=== PATIENT | male | born 1955 | race Caucasian/White ===

== ENCOUNTER 2017-02-10 16:50 | Emergency (ER) | payer MEDICAID ==
[~2017-02-10] VITALS: Ht 175.3 cm; Wt 61.0 kg
[~2017-02-10 16:50] MED LIST: ASPI81TA50 PO; LOSA50TA6 PO; METF500T27 PO
[2017-02-10] MEDS ORDERED: KETOROLAC 30 MG/1 ML IM ONE (17:00)
[2017-02-10 17:02] VITALS: BP 188/100
[2017-02-10] MEDS ORDERED: KETOROLAC 30 MG/1 ML ONE (17:17)
== END 2017-02-10 18:27 | disposition home or self-care (01) ==
LOC: ED 18:15
DX: M25.552 Pain in left hip (principal); I10 Essential (primary) hypertension; E11.9 Type 2 diabetes mellitus without complications; Z59.0 Homelessness
CPT/HCPCS: 73502; 96372; 99284; J1885

== ENCOUNTER 2017-02-24 15:22 | Emergency (ER) | payer MEDICAID ==
[~2017-02-24] VITALS: Ht 175.3 cm; Wt 59.0 kg
[2017-02-24 16:12] LABS: ASPARTATE AMINO TRANSFERASE 23 U/L (15-37); BLOOD UREA NITROGEN 21 mg/dL (7-18)
[2017-02-24 16:13] LABS: HEMATOCRIT 42.1 % (39.2-51.8); HEMOGLOBIN 14.1 g/dL (13.7-18.0); WHITE BLOOD COUNT 4.4 x10^3/uL (3.4-10)
[2017-02-24] MEDS ORDERED: ASPI-496 PO (16:39)
[2017-02-24 16:45] VITALS: BP 141/96
== END 2017-02-24 17:04 | disposition home or self-care (01) ==
LOC: ED 15:54
DX: S32.9XXA Fracture of unspecified parts of lumbosacral spine and pelvis, initial encounter for closed fracture (principal); I10 Essential (primary) hypertension; K59.00 Constipation, unspecified; J44.9 Chronic obstructive pulmonary disease, unspecified; M16.11 Unilateral primary osteoarthritis, right hip; E11.9 Type 2 diabetes mellitus without complications; X58.XXXA Exposure to other specified factors, initial encounter; Y93.89 Activity, other specified; Y92.89 Other specified places as the place of occurrence of the external cause; Y99.8 Other external cause status
CPT/HCPCS: 36415; 74176; 80053; 85025; 85610; 85730; 99285

== ENCOUNTER 2017-04-06 05:16 | Emergency (ER) | payer MEDICAID ==
[~2017-04-06] VITALS: Ht 175.3 cm; Wt 64.0 kg
[~2017-04-06 05:16] MED LIST changes: +ASPI-496 PO
[2017-04-06 05:19] VITALS: BP 171/108
[2017-04-06] MEDS ORDERED: ASPI-621 PO (05:46)
== END 2017-04-06 05:54 | disposition home or self-care (01) ==
LOC: ED 05:40
DX: K02.9 Dental caries, unspecified (principal); E11.9 Type 2 diabetes mellitus without complications; I10 Essential (primary) hypertension
CPT/HCPCS: 99283

== ENCOUNTER 2017-04-06 21:10 | Emergency (ER) | payer MEDICAID ==
[~2017-04-06] VITALS: Ht 175.3 cm; Wt 64.7 kg
[~2017-04-06 21:10] MED LIST changes: +ASPI-621 PO
[2017-04-06 21:12] VITALS: BP 142/88
[2017-04-06] MEDS ORDERED: IBUPROFEN 200 MG TABLET ONE (21:55)
[2017-04-06] MEDS ORDERED: IBUPROFEN 200 MG TABLET PO ONE (22:00)
== END 2017-04-06 23:03 | disposition home or self-care (01) ==
LOC: ED 21:49
DX: M16.11 Unilateral primary osteoarthritis, right hip (principal); M13.151 Monoarthritis, not elsewhere classified, right hip; I10 Essential (primary) hypertension; E11.9 Type 2 diabetes mellitus without complications; G89.29 Other chronic pain; M25.551 Pain in right hip; Z59.0 Homelessness
CPT/HCPCS: 99283

== ENCOUNTER 2017-04-19 14:11 | Emergency (ER) | payer MEDICAID ==
[~2017-04-19] VITALS: Ht 175.3 cm; Wt 64.0 kg
[2017-04-19 14:25] VITALS: BP 153/90
== END 2017-04-19 15:46 | disposition home or self-care (01) ==
LOC: ED 14:39
DX: M16.11 Unilateral primary osteoarthritis, right hip (principal); G89.29 Other chronic pain; E11.9 Type 2 diabetes mellitus without complications; I10 Essential (primary) hypertension
CPT/HCPCS: 99284

== ENCOUNTER 2017-05-09 19:58 | Emergency (ER) | payer MEDICAID | END 2017-05-09 20:44 | disposition left against medical advice (07) | LOC: ED 20:38 | DX: M25.551 Pain in right hip (principal); Z53.21 Procedure and treatment not carried out due to patient leaving prior to being seen by health care provider ==

== ENCOUNTER 2017-05-10 18:33 | Emergency (ER) | payer MEDICAID ==
[~2017-05-10] VITALS: Ht 175.3 cm; Wt 64.5 kg
[2017-05-10 18:41] VITALS: BP 132/80
[2017-05-10] MEDS ORDERED: ONDANSETRON ODT 4 MG ONE (19:02)
== END 2017-05-10 19:06 | disposition home or self-care (01) ==
LOC: ED 18:55
DX: G89.29 Other chronic pain (principal); M25.552 Pain in left hip; M25.551 Pain in right hip; M13.851 Other specified arthritis, right hip; I10 Essential (primary) hypertension; E11.9 Type 2 diabetes mellitus without complications; Z79.82 Long term (current) use of aspirin
CPT/HCPCS: 99283

== ENCOUNTER 2017-05-23 17:57 | Emergency (ER) | payer MEDICAID ==
[~2017-05-23] VITALS: Ht 175.3 cm; Wt 64.0 kg
[2017-05-23 17:59] VITALS: BP 157/82
[2017-05-23] MEDS ORDERED: MAALOX/HYOSCYAMINE/LIDOCAINE 45 ML BTL PO ONE (18:30)
[2017-05-23] MEDS ORDERED: PANTOPRAZOLE 20MG TABLET PO ONE (18:30)
[2017-05-23] MEDS ORDERED: MAALOX/HYOSCYAMINE/LIDOCAINE 45 ML BTL ONE (18:37)
[2017-05-23] MEDS ORDERED: PANTOPRAZOLE 20MG TABLET ONE (18:37)
[2017-05-23 18:57] LABS: BASOPHILS # (AUTO) 0.08 x10^3/uL (0-0.1); BASOPHILS % (AUTO) 2 % (0-1); EOSINOPHILS # (AUTO) 0.28 x10^3/uL (0-0.4); EOSINOPHILS % (AUTO) 5 % (1-7); LYMPHOCYTES # (AUTO) 1.17 x10^3/uL (1-3.4); LYMPHOCYTES % (AUTO) 20 % (22-44); MD NO; MEAN CORPUSCULAR HEMOGLOBIN 31.7 pg (27.5-34.5); MEAN CORPUSCULAR HGB CONC 32.8 g/dL (33.2-36.2); MEAN CORPUSCULAR VOLUME 96.9 fL (81-97); MEAN PLATELET VOLUME 7.6 fL (7.4-10.4); MONOCYTES # (AUTO) 0.43 x10^3/uL (0.2-0.8); MONOCYTES % (AUTO) 7 % (2-9); NEUTROPHILS # (AUTO) 3.79 x10^3/uL (1.8-6.8); NEUTROPHILS % (AUTO) 66 % (42-75); PLATELET COUNT 294 x10^3/uL (130-400); RED BLOOD COUNT 4.45 x10^6/uL (4.38-5.82); RED CELL DISTRIBUTION WIDTH 15.1 % (9.4-14.8)
[2017-05-23 19:01] LABS: CULTURE INDICATED? YES; MICROSCOPIC INDICATED
[2017-05-23 19:10] LABS: ALANINE AMINOTRANSFERASE 21 U/L (12-78); ANION GAP 9 mmol/L (5-15); CALCIUM 8.5 mg/dL (8.5-10.1); CHLORIDE 108 mmol/L (98-107); CREATININE 0.98 mg/dL (0.7-1.3)
[2017-05-23 19:15] LABS: ALKALINE PHOSPHATASE 63 U/L (45-117); BILIRUBIN,TOTAL 0.4 mg/dL (0.2-1.0); TOTAL PROTEIN 7.3 g/dL (6.4-8.2); TROPONIN I < 0.015 ng/mL (0.000-0.045)
== END 2017-05-23 19:55 | disposition home or self-care (01) ==
LOC: ED 18:48
DX: K25.3 Acute gastric ulcer without hemorrhage or perforation (principal); J45.909 Unspecified asthma, uncomplicated; I10 Essential (primary) hypertension; E11.9 Type 2 diabetes mellitus without complications; Z79.82 Long term (current) use of aspirin
CPT/HCPCS: 36415; 71045; 80053; 81001; 83690; 84484; 85025; 86677; 87086; 93005; 99285

== ENCOUNTER 2017-06-15 04:53 | Emergency (ER) | payer MEDICAID ==
[~2017-06-15] VITALS: Ht 175.3 cm; Wt 62.4 kg
[2017-06-15 04:54] VITALS: BP 170/85
== END 2017-06-15 05:38 | disposition home or self-care (01) ==
LOC: ED 05:20
DX: Z76.0 Encounter for issue of repeat prescription (principal); M16.11 Unilateral primary osteoarthritis, right hip; E11.9 Type 2 diabetes mellitus without complications; I10 Essential (primary) hypertension
CPT/HCPCS: 99283

== ENCOUNTER 2017-06-20 12:24 | Observation (INO) | payer MEDICAID ==
[~2017-06-20] VITALS: Ht 175.3 cm; Wt 61.0 kg
[2017-06-20 11:37] LABS: BASOPHILS # (AUTO) 0.03 x10^3/uL (0-0.1); BASOPHILS % (AUTO) 0 % (0-1); EOSINOPHILS # (AUTO) 0.08 x10^3/uL (0-0.4); EOSINOPHILS % (AUTO) 1 % (1-7); LYMPHOCYTES # (AUTO) 0.89 x10^3/uL (1-3.4); LYMPHOCYTES % (AUTO) 13 % (22-44); MD NO; MEAN CORPUSCULAR HEMOGLOBIN 31.6 pg (27.5-34.5); MEAN CORPUSCULAR HGB CONC 32.7 g/dL (33.2-36.2); MEAN CORPUSCULAR VOLUME 96.6 fL (81-97); MEAN PLATELET VOLUME 7.5 fL (7.4-10.4); MONOCYTES # (AUTO) 0.49 x10^3/uL (0.2-0.8); MONOCYTES % (AUTO) 7 % (2-9); NEUTROPHILS # (AUTO) 5.58 x10^3/uL (1.8-6.8); NEUTROPHILS % (AUTO) 79 % (42-75); PLATELET COUNT 286 x10^3/uL (130-400); RED BLOOD COUNT 4.54 x10^6/uL (4.38-5.82); RED CELL DISTRIBUTION WIDTH 15.1 % (9.4-14.8)
[2017-06-20 11:48] LABS: TROPONIN I < 0.015 ng/mL (0.000-0.045)
[2017-06-20 12:20] LABS: ALANINE AMINOTRANSFERASE 17 U/L (12-78); ALBUMIN 3.6 g/dL (3.4-5.0); ANION GAP 10 mmol/L (5-15); CHLORIDE 108 mmol/L (98-107); CREATININE 0.94 mg/dL (0.7-1.3)
[2017-06-20 12:23] LABS: ALKALINE PHOSPHATASE 59 U/L (45-117); BILIRUBIN,TOTAL 0.3 mg/dL (0.2-1.0); TOTAL PROTEIN 7.1 g/dL (6.4-8.2)
[~2017-06-20 12:24] MED LIST changes: +FAMOTIDINE 20 MG/2 ML IVP ONE; +FAMOTIDINE 20 MG/2 ML ONE; +MAALOX/HYOSCYAMINE/LIDOCAINE 45 ML BTL ONE; +MAALOX/HYOSCYAMINE/LIDOCAINE 45 ML BTL PO ONE; +ONDANSETRON 2MG/ML, 2ML IVPush ONE; +ONDANSETRON 2MG/ML, 2ML ONE; +SODIUM CHLORIDE 0.9% 1,000ML IVBOLUS ONE; +SODIUM CHLORIDE FLUSH 10ML SYR IVF ONE
[2017-06-20] MEDS ORDERED: OMNIPAQUE 350 MG/ML, 100ML BOTTLE ONE (12:47)
[2017-06-20 15:30] VITALS: BP 167/85
[2017-06-20] MEDS ORDERED: ENALAPRILAT 1.25 MG/ML, 2ML IVPush PRN (15:30)
[2017-06-20] MEDS ORDERED: ONDANSETRON ODT 4 MG PO PRN (15:30)
[2017-06-20] MEDS ORDERED: DOCUSATE 100 MG CAPSULE PO PRN (15:30)
[2017-06-20] MEDS ORDERED: LABETALOL 5MG/ML, 20ML IVPush PRN (15:30)
[2017-06-20] MEDS ORDERED: ONDANSETRON 2MG/ML, 2ML IVPush PRN (15:30)
[2017-06-20] MEDS ORDERED: ACETAMINOPHEN 325 MG TABLET PO PRN (15:30)
[2017-06-20 16:21] VITALS: BP 149/87
[2017-06-20 17:33] LABS: TROPONIN I < 0.015 ng/mL (0.000-0.045)
[2017-06-20 20:31] VITALS: BP 134/84
[2017-06-20] MEDS: FAMOTIDINE 20 MG/2 ML IVPush SCH (20:41)
[2017-06-20 23:16] LABS: TROPONIN I < 0.015 ng/mL (0.000-0.045)
[2017-06-21 02:00] VITALS: BP 157/80
[2017-06-21 05:13] LABS: BASOPHILS # (AUTO) 0.03 x10^3/uL (0-0.1); BASOPHILS % (AUTO) 1 % (0-1); EOSINOPHILS # (AUTO) 0.16 x10^3/uL (0-0.4); EOSINOPHILS % (AUTO) 3 % (1-7); LYMPHOCYTES # (AUTO) 1.06 x10^3/uL (1-3.4); LYMPHOCYTES % (AUTO) 19 % (22-44); MD NO; MEAN CORPUSCULAR HEMOGLOBIN 31.6 pg (27.5-34.5); MEAN CORPUSCULAR HGB CONC 32.9 g/dL (33.2-36.2); MEAN CORPUSCULAR VOLUME 95.9 fL (81-97); MEAN PLATELET VOLUME 7.4 fL (7.4-10.4); MONOCYTES # (AUTO) 0.55 x10^3/uL (0.2-0.8); MONOCYTES % (AUTO) 10 % (2-9); NEUTROPHILS # (AUTO) 3.83 x10^3/uL (1.8-6.8); NEUTROPHILS % (AUTO) 68 % (42-75); PLATELET COUNT 275 x10^3/uL (130-400); RED BLOOD COUNT 4.18 x10^6/uL (4.38-5.82); RED CELL DISTRIBUTION WIDTH 14.9 % (9.4-14.8)
[2017-06-21 05:19] LABS: ANION GAP 7 mmol/L (5-15); CALCIUM 8.4 mg/dL (8.5-10.1); CHLORIDE 111 mmol/L (98-107)
[2017-06-21 05:23] LABS: ALANINE AMINOTRANSFERASE 14 U/L (12-78); ALKALINE PHOSPHATASE 52 U/L (45-117); BILIRUBIN,TOTAL 0.5 mg/dL (0.2-1.0); CREATININE 0.85 mg/dL (0.7-1.3); TOTAL PROTEIN 6.3 g/dL (6.4-8.2)
[2017-06-21 08:00] VITALS: BP 147/80
[2017-06-21] MEDS ORDERED: REGADENOSON 0.4 MG/5 ML SYRINGE ONE (08:48)
[2017-06-21] MEDS: FAMOTIDINE 20 MG/2 ML IVPush SCH (09:00)
[2017-06-21 12:37] LABS: OCCULT BLOOD NEGATIVE (NEGATIVE)
[2017-06-21 14:00] VITALS: BP 140/81
[2017-06-21] MEDS ORDERED: ALBU90AE INH (14:21)
[2017-06-21] MEDS ORDERED: OMEP40CA6 PO (14:21)
== END 2017-06-21 17:07 | disposition home or self-care (01) ==
LOC: ED 12:24 → EDIP 14:05 → INTOOBSV 14:05 → 5SO 15:15
PROVIDERS: ADMIT Hospitalist; ATTEND Hospitalist
DX: R07.89 Other chest pain (principal); J45.909 Unspecified asthma, uncomplicated; I10 Essential (primary) hypertension; M41.9 Scoliosis, unspecified; E44.1 Mild protein-calorie malnutrition; I35.8 Other nonrheumatic aortic valve disorders; E11.9 Type 2 diabetes mellitus without complications; Z59.0 Homelessness; Z83.3 Family history of diabetes mellitus; Z87.11 Personal history of peptic ulcer disease; Z87.891 Personal history of nicotine dependence
CPT/HCPCS: 36415; 71045; 74177; 78452; 80053; 82272; 83605; 83690; 83735; 84100; 84484; 85025; 93005; 93017; 93306; 96361; 96374; 96376; 99285; A9502; C9898; G0378; J2405; J2785; J7030; Q9967; S0028

== ENCOUNTER 2017-07-12 16:51 | Emergency (ER) | payer MEDICAID ==
[~2017-07-12] VITALS: Ht 175.3 cm; Wt 64.4 kg
[~2017-07-12 16:51] MED LIST changes: +ALBU90AE INH; -FAMOTIDINE 20 MG/2 ML IVP ONE; -FAMOTIDINE 20 MG/2 ML ONE; -MAALOX/HYOSCYAMINE/LIDOCAINE 45 ML BTL ONE; -MAALOX/HYOSCYAMINE/LIDOCAINE 45 ML BTL PO ONE; +OMEP40CA6 PO; -ONDANSETRON 2MG/ML, 2ML IVPush ONE; -ONDANSETRON 2MG/ML, 2ML ONE; -SODIUM CHLORIDE 0.9% 1,000ML IVBOLUS ONE; -SODIUM CHLORIDE FLUSH 10ML SYR IVF ONE
[2017-07-12] MEDS ORDERED: ASPI-647 PO (17:23)
[2017-07-12] MEDS ORDERED: KETOROLAC 30 MG/1 ML ONE (17:52)
[2017-07-12] MEDS ORDERED: KETOROLAC 30 MG/1 ML IM ONE (18:00)
[2017-07-12 18:53] VITALS: BP 145/86
== END 2017-07-12 18:57 | disposition home or self-care (01) ==
LOC: ED 17:14
DX: M13.151 Monoarthritis, not elsewhere classified, right hip (principal); M87.851 Other osteonecrosis, right femur; I10 Essential (primary) hypertension; E11.9 Type 2 diabetes mellitus without complications; J45.909 Unspecified asthma, uncomplicated; G89.29 Other chronic pain; Z88.7 Allergy status to serum and vaccine; Z59.0 Homelessness
CPT/HCPCS: 73502; 93005; 96372; 99284; J1885

== ENCOUNTER 2017-07-21 12:29 | Emergency (ER) | payer MEDICAID ==
[~2017-07-21] VITALS: Ht 175.3 cm; Wt 65.0 kg
[~2017-07-21 12:29] MED LIST changes: +ASPI-647 PO
[2017-07-21 13:44] LABS: BASOPHILS # (AUTO) 0.05 x10^3/uL (0-0.1); BASOPHILS % (AUTO) 1 % (0-1); EOSINOPHILS # (AUTO) 0.14 x10^3/uL (0-0.4); EOSINOPHILS % (AUTO) 3 % (1-7); LYMPHOCYTES # (AUTO) 0.94 x10^3/uL (1-3.4); LYMPHOCYTES % (AUTO) 21 % (22-44); MD NO; MEAN CORPUSCULAR HEMOGLOBIN 31.9 pg (27.5-34.5); MEAN CORPUSCULAR HGB CONC 33.1 g/dL (33.2-36.2); MEAN CORPUSCULAR VOLUME 96.3 fL (81-97); MEAN PLATELET VOLUME 7.5 fL (7.4-10.4); MONOCYTES % (AUTO) 7 % (2-9); NEUTROPHILS % (AUTO) 69 % (42-75); PLATELET COUNT 259 x10^3/uL (130-400); RED BLOOD COUNT 4.28 x10^6/uL (4.38-5.82); RED CELL DISTRIBUTION WIDTH 15.4 % (9.4-14.8)
[2017-07-21 13:57] LABS: ALANINE AMINOTRANSFERASE 19 U/L (12-78); ALBUMIN 3.9 g/dL (3.4-5.0); ANION GAP 7 mmol/L (5-15); CALCIUM 8.7 mg/dL (8.5-10.1); CHLORIDE 108 mmol/L (98-107); CREATININE 1.11 mg/dL (0.7-1.3)
[2017-07-21 13:59] LABS: ALKALINE PHOSPHATASE 55 U/L (45-117); BILIRUBIN,TOTAL 0.3 mg/dL (0.2-1.0)
[2017-07-21 14:04] VITALS: BP 130/82
[2017-07-21 15:08] LABS: MICROSCOPIC NOT IND
[2017-07-21 15:11] LABS: CULTURE INDICATED? NO
== END 2017-07-21 15:40 | disposition home or self-care (01) ==
LOC: ED 14:25
DX: R10.13 Epigastric pain (principal); I10 Essential (primary) hypertension; E11.9 Type 2 diabetes mellitus without complications; J45.909 Unspecified asthma, uncomplicated; M13.851 Other specified arthritis, right hip; G89.29 Other chronic pain; Z88.7 Allergy status to serum and vaccine; Z59.0 Homelessness; Z79.82 Long term (current) use of aspirin
CPT/HCPCS: 36415; 74022; 80053; 81003; 83690; 85025; 93005; 99285

== ENCOUNTER 2017-08-20 20:12 | Emergency (ER) | payer MEDICAID ==
[~2017-08-20] VITALS: Ht 175.3 cm; Wt 63.0 kg
[2017-08-20 20:15] VITALS: BP 134/86
== END 2017-08-20 21:13 | disposition home or self-care (01) ==
LOC: ED 21:04
DX: K02.9 Dental caries, unspecified (principal); I10 Essential (primary) hypertension; F17.200 Nicotine dependence, unspecified, uncomplicated; Z59.0 Homelessness
CPT/HCPCS: 99283

== ENCOUNTER 2017-09-12 17:46 | Emergency (ER) | payer MEDICAID ==
[2017-09-13] MEDS ORDERED: ASPIRIN (18:39)
== END 2017-09-12 18:54 | disposition left against medical advice (07) ==
LOC: ED 18:48
DX: Z53.21 Procedure and treatment not carried out due to patient leaving prior to being seen by health care provider (principal)

== ENCOUNTER 2017-09-13 17:00 | Emergency (ER) | payer MEDICAID ==
[~2017-09-13] VITALS: Ht 175.3 cm; Wt 63.1 kg
[2017-09-13] MEDS ORDERED: PROMETHAZINE 25 MG/ML, 1ML IM ONE (18:30)
[2017-09-13 18:31] LABS: BASOPHILS % (AUTO) 0 % (0-1); EOSINOPHILS # (AUTO) 0.08 x10^3/uL (0-0.4); EOSINOPHILS % (AUTO) 2 % (1-7); LYMPHOCYTES # (AUTO) 0.17 x10^3/uL (1-3.4); LYMPHOCYTES % (AUTO) 4 % (22-44); MD NO; MEAN CORPUSCULAR HEMOGLOBIN 32.1 pg (27.5-34.5); MEAN CORPUSCULAR HGB CONC 33.4 g/dL (33.2-36.2); MEAN PLATELET VOLUME 7.4 fL (7.4-10.4); MONOCYTES # (AUTO) 0.11 x10^3/uL (0.2-0.8); MONOCYTES % (AUTO) 2 % (2-9); NEUTROPHILS # (AUTO) 4.39 x10^3/uL (1.8-6.8); NEUTROPHILS % (AUTO) 93 % (42-75); PLATELET COUNT 259 x10^3/uL (130-400); RED BLOOD COUNT 4.48 x10^6/uL (4.38-5.82); RED CELL DISTRIBUTION WIDTH 15.7 % (9.4-14.8)
[2017-09-13] MEDS ORDERED: ASPIRIN (18:39)
[2017-09-13 18:40] LABS: ALANINE AMINOTRANSFERASE 21 U/L (12-78); ALBUMIN 3.7 g/dL (3.4-5.0); ANION GAP 7 mmol/L (5-15); CALCIUM 8.4 mg/dL (8.5-10.1); CHLORIDE 110 mmol/L (98-107); CREATININE 0.98 mg/dL (0.7-1.3)
[2017-09-13 18:42] LABS: ALKALINE PHOSPHATASE 57 U/L (45-117); BILIRUBIN,TOTAL 0.4 mg/dL (0.2-1.0); TOTAL PROTEIN 6.8 g/dL (6.4-8.2)
[2017-09-13] MEDS ORDERED: PROMETHAZINE 25 MG/ML, 1ML ONE (19:05)
[2017-09-13] MEDS ORDERED: MAALOX/HYOSCYAMINE/LIDOCAINE 45 ML BTL PO ONE (19:30)
[2017-09-13] MEDS ORDERED: LOPERAMIDE 2 MG CAPSULE PO ONE (19:30)
[2017-09-13 19:52] LABS: TROPONIN I < 0.015 ng/mL (0.000-0.045)
[2017-09-13] MEDS ORDERED: LOPERAMIDE 2 MG CAPSULE ONE (19:54)
[2017-09-13] MEDS ORDERED: MAALOX/HYOSCYAMINE/LIDOCAINE 45 ML BTL ONE (19:54)
[2017-09-13 20:52] VITALS: BP 165/89
== END 2017-09-13 20:55 | disposition home or self-care (01) ==
LOC: ED 18:40
DX: R19.7 Diarrhea, unspecified (principal); R07.2 Precordial pain; I10 Essential (primary) hypertension; E11.9 Type 2 diabetes mellitus without complications; M19.90 Unspecified osteoarthritis, unspecified site; J45.909 Unspecified asthma, uncomplicated; Z88.7 Allergy status to serum and vaccine; Z59.0 Homelessness
CPT/HCPCS: 36415; 71045; 80053; 83690; 84484; 85025; 93005; 96372; 99285; J2550

== ENCOUNTER 2017-10-16 05:23 | Emergency (ER) | payer MEDICAID ==
[~2017-10-16] VITALS: Ht 175.3 cm; Wt 65.0 kg
[~2017-10-16 05:23] MED LIST changes: +ASPIRIN
[2017-10-16 05:24] VITALS: BP 155/99
[2017-10-16] MEDS ORDERED: IBUPROFEN 200 MG TABLET PO ONE (06:00)
[2017-10-16] MEDS ORDERED: IBUPROFEN 200 MG TABLET ONE (06:06)
== END 2017-10-16 07:09 ==
LOC: ED 05:57
DX: M46.1 Sacroiliitis, not elsewhere classified (principal); M13.151 Monoarthritis, not elsewhere classified, right hip; I10 Essential (primary) hypertension; E11.9 Type 2 diabetes mellitus without complications
CPT/HCPCS: 99283

== ENCOUNTER 2017-11-15 10:03 | Emergency (ER) | payer MEDICAID ==
[~2017-11-15] VITALS: Ht 175.3 cm; Wt 60.2 kg
[2017-11-15 10:05] VITALS: BP 166/103
== END 2017-11-15 10:49 | disposition home or self-care (01) ==
LOC: ED 10:35
DX: K12.0 Recurrent oral aphthae (principal); I10 Essential (primary) hypertension; J45.909 Unspecified asthma, uncomplicated
CPT/HCPCS: 99283

== ENCOUNTER 2018-01-05 17:40 | Inpatient (IN) | payer MEDICAID ==
[~2018-01-05] VITALS: Ht 172.7 cm; Wt 67.0 kg
[~2018-01-05 17:40] MED LIST changes: -LOSA50TA6 PO; +LOSA50TA7 PO
[2018-01-05] MEDS ORDERED: ASPI-650 PO (18:00)
[2018-01-05] MEDS ORDERED: SODIUM CHLORIDE FLUSH 10ML SYR IVF ONE ×2 (18:30→19:30)
[2018-01-05 18:40] LABS: BASOPHILS % (AUTO) 0 % (0-1); EOSINOPHILS # (AUTO) 0.02 x10^3/uL (0-0.4); EOSINOPHILS % (AUTO) 0 % (1-7); LYMPHOCYTES # (AUTO) 0.75 x10^3/uL (1-3.4); LYMPHOCYTES % (AUTO) 8 % (22-44); MD NO; MEAN CORPUSCULAR HEMOGLOBIN 32.6 pg (27.5-34.5); MEAN CORPUSCULAR HGB CONC 33.5 g/dL (33.2-36.2); MEAN CORPUSCULAR VOLUME 97.2 fL (81-97); MEAN PLATELET VOLUME 7.8 fL (7.4-10.4); MONOCYTES # (AUTO) 0.39 x10^3/uL (0.2-0.8); MONOCYTES % (AUTO) 4 % (2-9); NEUTROPHILS # (AUTO) 8.03 x10^3/uL (1.8-6.8); NEUTROPHILS % (AUTO) 87 % (42-75); PLATELET COUNT 290 x10^3/uL (130-400); RED BLOOD COUNT 4.77 x10^6/uL (4.38-5.82); RED CELL DISTRIBUTION WIDTH 16.3 % (9.4-14.8)
[2018-01-05 18:42] LABS: MICROSCOPIC INDICATED
[2018-01-05 18:50] LABS: ALANINE AMINOTRANSFERASE 24 U/L (12-78); ALBUMIN 4.3 g/dL (3.4-5.0); ANION GAP 8 mmol/L (5-15); CALCIUM 9.4 mg/dL (8.5-10.1); CHLORIDE 110 mmol/L (98-107); CREATININE 1.19 mg/dL (0.7-1.3)
[2018-01-05 18:52] LABS: ALKALINE PHOSPHATASE 63 U/L (45-117); BILIRUBIN,TOTAL 0.4 mg/dL (0.2-1.0); TOTAL PROTEIN 7.6 g/dL (6.4-8.2)
[2018-01-05 18:54] LABS: CULTURE INDICATED? NO
[2018-01-05] MEDS ORDERED: MAALOX/HYOSCYAMINE/LIDOCAINE 45 ML BTL ONE (18:56)
[2018-01-05] MEDS ORDERED: MAALOX/HYOSCYAMINE/LIDOCAINE 45 ML BTL PO ONE (19:00)
[2018-01-05] MEDS ORDERED: FAMOTIDINE 20 MG TABLET ONE (19:19)
[2018-01-05] MEDS ORDERED: NITROGLYCERIN SINGLE TAB 0.4 MG SL PRN (19:30)
[2018-01-05] MEDS ORDERED: FAMOTIDINE 20 MG TABLET PO ONE (19:30)
[2018-01-05] MEDS ORDERED: MORPHINE SULFATE 4 MG/ML, 1ML IVPush PRN (19:30)
[2018-01-05] MEDS ORDERED: MORPHINE SULFATE 4 MG/ML, 1ML ONE (19:34)
[2018-01-05] MEDS ORDERED: NITROGLYCERIN SINGLE TAB 0.4 MG SL ONE (19:43)
[2018-01-05 20:00] LABS: INTERNATIONAL NORMALIZED RATIO 0.97 (0.93-1.1)
[2018-01-05] MEDS ORDERED: HEPARIN 5,000 UNITS/ML, 1ML IV ONE (20:00)
[2018-01-05] MEDS ORDERED: HEPARIN 5,000 UNITS/ML, 1ML IV PRN (20:00)
[2018-01-05] MEDS ORDERED: HEPARIN 25,000 UNITS/500ML PMX 500 ML IV PRN (20:00)
[2018-01-05] MEDS ORDERED: PLEASE ENTER WEIGHT MC SCH (20:00)
[2018-01-05] MEDS ORDERED: HEPARIN 5,000 UNITS/ML, 1ML ONE (20:05)
[2018-01-05] MEDS ORDERED: MIDAZOLAM 1 MG/ML, 5ML ONE (20:17)
[2018-01-05] MEDS ORDERED: TICAGRELOR 90 MG TABLET ONE (20:17)
[2018-01-05] MEDS ORDERED: BIVALIRUDIN 250 MG ONE (20:17)
[2018-01-05] MEDS ORDERED: HEPARIN 1,000 UNITS/ML, 10ML ONE (20:17)
[2018-01-05] MEDS ORDERED: FENTANYL PF 100 MCG/2ML ONE (20:17)
[2018-01-05] MEDS ORDERED: VERAPAMIL 2.5 MG/ML, 2ML ONE (20:17)
[2018-01-05] MEDS ORDERED: LIDOCAINE-MPF 2%, 2ML ONE (20:18)
[2018-01-05] MEDS ORDERED: HEPARIN 25,000 UNITS/500ML PMX 500 ML ONE (20:23)
[2018-01-05] MEDS ORDERED: NITROGLYCERIN 0.4 MG BOTTLE (25 TABS) SL PRN (21:00)
[2018-01-05] MEDS ORDERED: CARVEDILOL 12.5 MG TABLET PO SCH (21:00)
[2018-01-05] MEDS ORDERED: ONDANSETRON 2MG/ML, 2ML IVPush PRN (21:00)
[2018-01-05] MEDS ORDERED: NITROGLYCERIN 0.4 MG/SPRAY SL PRN (21:00)
[2018-01-05 21:12] LABS: CHOL/HDL RATIO 2.6; LDL/HDL RATIO 1.5 (0.5-3.0)
[2018-01-05] MEDS: ATORVASTATIN 80 MG TABLET PO SCH (21:48)
[2018-01-05 21:49] VITALS: BP 134/79
[2018-01-05] MEDS: SODIUM CHLORIDE FLUSH 10ML SYR IVF SCH (22:05)
[2018-01-05] MEDS: SODIUM CHLORIDE 0.9% 1,000 ML IV SCH (22:05)
[2018-01-05] MEDS: CARVEDILOL 3.125 MG TABLET PO SCH (22:51)
[2018-01-06] MEDS ORDERED: ONDANSETRON 4 MG TABLET ONE (00:57)
[2018-01-06] MEDS ORDERED: ONDANSETRON ODT 4 MG ONE (00:58)
[2018-01-06 04:53] LABS: BASOPHILS # (AUTO) 0.03 x10^3/uL (0-0.1); BASOPHILS % (AUTO) 0 % (0-1); EOSINOPHILS # (AUTO) 0.09 x10^3/uL (0-0.4); EOSINOPHILS % (AUTO) 1 % (1-7); LYMPHOCYTES # (AUTO) 0.85 x10^3/uL (1-3.4); LYMPHOCYTES % (AUTO) 9 % (22-44); MD NO; MEAN CORPUSCULAR HEMOGLOBIN 32.1 pg (27.5-34.5); MEAN CORPUSCULAR HGB CONC 33.5 g/dL (33.2-36.2); MEAN CORPUSCULAR VOLUME 95.8 fL (81-97); MEAN PLATELET VOLUME 8.2 fL (7.4-10.4); MONOCYTES # (AUTO) 0.65 x10^3/uL (0.2-0.8); MONOCYTES % (AUTO) 7 % (2-9); NEUTROPHILS # (AUTO) 7.51 x10^3/uL (1.8-6.8); NEUTROPHILS % (AUTO) 82 % (42-75); PLATELET COUNT 250 x10^3/uL (130-400); RED BLOOD COUNT 4.34 x10^6/uL (4.38-5.82); RED CELL DISTRIBUTION WIDTH 16.1 % (9.4-14.8)
[2018-01-06 04:54] LABS: ANION GAP 6 mmol/L (5-15); CALCIUM 8.5 mg/dL (8.5-10.1); CHLORIDE 113 mmol/L (98-107)
[2018-01-06 04:56] LABS: CREATININE 0.71 mg/dL (0.7-1.3)
[2018-01-06] MEDS: SODIUM CHLORIDE 0.9% 1,000 ML IV SCH ×4 (05:09→21:31)
[2018-01-06] MEDS: ASPIRIN 81 MG TABLET EC PO SCH (05:09)
[2018-01-06] MEDS: SODIUM CHLORIDE FLUSH 10ML SYR IVF SCH ×2 (08:30→20:09)
[2018-01-06] MEDS: TICAGRELOR 90 MG TABLET PO SCH ×2 (08:30→20:10)
[2018-01-06] MEDS: CARVEDILOL 3.125 MG TABLET PO SCH ×3 (08:30→20:10)
[2018-01-06] MEDS: LISINOPRIL 5 MG TABLET PO SCH ×2 (08:52→20:09)
[2018-01-06] MEDS ORDERED: MIDAZOLAM 1 MG/ML, 5ML ONE (13:01)
[2018-01-06] MEDS ORDERED: FENTANYL PF 100 MCG/2ML ONE (13:01)
[2018-01-06] MEDS ORDERED: VERAPAMIL 2.5 MG/ML, 2ML ONE (13:01)
[2018-01-06] MEDS ORDERED: HEPARIN 1,000 UNITS/ML, 10ML ONE (13:02)
[2018-01-06] MEDS ORDERED: BIVALIRUDIN 250 MG ONE (13:02)
[2018-01-06] MEDS ORDERED: LIDOCAINE-MPF 2%, 2ML ONE (13:02)
[2018-01-06] MEDS: ATORVASTATIN 80 MG TABLET PO SCH (20:09)
[2018-01-07] MEDS: SODIUM CHLORIDE 0.9% 1,000 ML IV SCH ×3 (00:29→06:51)
[2018-01-07] MEDS ORDERED: ALBUTEROL SULFATE 2.5 MG/3 ML ONE (04:51)
[2018-01-07 05:18] LABS: ANION GAP 8 mmol/L (5-15); CALCIUM 8.1 mg/dL (8.5-10.1); CHLORIDE 114 mmol/L (98-107); CREATININE 0.64 mg/dL (0.7-1.3)
[2018-01-07 05:21] LABS: BASOPHILS # (AUTO) 0.02 x10^3/uL (0-0.1); BASOPHILS % (AUTO) 0 % (0-1); EOSINOPHILS # (AUTO) 0.08 x10^3/uL (0-0.4); EOSINOPHILS % (AUTO) 1 % (1-7); LYMPHOCYTES % (AUTO) 15 % (22-44); MD NO; MEAN CORPUSCULAR HEMOGLOBIN 31.9 pg (27.5-34.5); MEAN CORPUSCULAR HGB CONC 33.3 g/dL (33.2-36.2); MEAN CORPUSCULAR VOLUME 95.9 fL (81-97); MEAN PLATELET VOLUME 8.4 fL (7.4-10.4); MONOCYTES # (AUTO) 0.53 x10^3/uL (0.2-0.8); MONOCYTES % (AUTO) 8 % (2-9); NEUTROPHILS # (AUTO) 5.25 x10^3/uL (1.8-6.8); NEUTROPHILS % (AUTO) 76 % (42-75); PLATELET COUNT 224 x10^3/uL (130-400); RED BLOOD COUNT 4.25 x10^6/uL (4.38-5.82)
[2018-01-07] MEDS: ASPIRIN 81 MG TABLET EC PO SCH (05:56)
[2018-01-07] MEDS: LISINOPRIL 5 MG TABLET PO SCH ×2 (09:04→22:02)
[2018-01-07] MEDS: CARVEDILOL 3.125 MG TABLET PO SCH ×2 (09:04→22:03)
[2018-01-07] MEDS: SODIUM CHLORIDE FLUSH 10ML SYR IVF SCH ×2 (09:04→22:00)
[2018-01-07] MEDS: TICAGRELOR 90 MG TABLET PO SCH ×2 (09:05→22:03)
[2018-01-07 13:37] VITALS: BP 135/89
[2018-01-07 14:25] VITALS: BP 131/83
[2018-01-07 20:04] VITALS: BP 151/95
[2018-01-07] MEDS: ATORVASTATIN 80 MG TABLET PO SCH (22:03)
[2018-01-08 00:49] VITALS: BP 128/75
[2018-01-08] MEDS: ASPIRIN 81 MG TABLET EC PO SCH (06:00)
[2018-01-08 07:40] VITALS: BP 149/99
[2018-01-08] MEDS: LISINOPRIL 5 MG TABLET PO SCH (07:45)
[2018-01-08] MEDS: TICAGRELOR 90 MG TABLET PO SCH (07:45)
[2018-01-08] MEDS: CARVEDILOL 3.125 MG TABLET PO SCH (07:46)
[2018-01-08] MEDS: SODIUM CHLORIDE FLUSH 10ML SYR IVF SCH (07:46)
[2018-01-08] MEDS ORDERED: CLOPIDOGREL 75 MG TABLET PO ONE (09:00)
[2018-01-08] MEDS ORDERED: ATOR-2 PO (09:26)
[2018-01-08] MEDS ORDERED: ASPI-621 PO (09:26)
[2018-01-08] MEDS ORDERED: NITR0.4T SL (09:26)
[2018-01-08] MEDS ORDERED: CARV3.1212 PO (09:26)
[2018-01-08] MEDS ORDERED: CLOP75TA PO (09:26)
[2018-01-08] MEDS ORDERED: LISI5TAB7 PO (09:26)
[2018-01-09] MEDS ORDERED: CLOPIDOGREL 75 MG TABLET PO SCH (09:00)
== END 2018-01-08 12:05 | disposition home or self-care (01) | DRG 246 ==
LOC: ED 20:18 → EDIP 20:19 → CCU 21:40 → 5SO 01-07 12:41 → DCLOUNGE 01-08 11:51
PROVIDERS: ADMIT Family Medicine; ATTEND Family Medicine
PROC: 4A023N7 Measurement of Cardiac Sampling and Pressure, Left Heart, Percutaneous Approach (ICD-10-PCS; principal; 2018-01-05)
PROC: 027036Z Dilation of Coronary Artery, One Artery with Three Drug-eluting Intraluminal Devices, Percutaneous Approach (ICD-10-PCS; 2018-01-05)
PROC: B2111ZZ Fluoroscopy of Multiple Coronary Arteries using Low Osmolar Contrast (ICD-10-PCS; 2018-01-05)
PROC: B2151ZZ Fluoroscopy of Left Heart using Low Osmolar Contrast (ICD-10-PCS; 2018-01-05)
DX: I21.4 Non-ST elevation (NSTEMI) myocardial infarction (principal); I50.41 Acute combined systolic (congestive) and diastolic (congestive) heart failure; R71.0 Precipitous drop in hematocrit; I11.0 Hypertensive heart disease with heart failure; F12.90 Cannabis use, unspecified, uncomplicated; I25.10 Atherosclerotic heart disease of native coronary artery without angina pectoris; E78.5 Hyperlipidemia, unspecified; J45.909 Unspecified asthma, uncomplicated; R55 Syncope and collapse; I25.5 Ischemic cardiomyopathy; E11.9 Type 2 diabetes mellitus without complications; I44.7 Left bundle-branch block, unspecified; M16.11 Unilateral primary osteoarthritis, right hip; Z59.0 Homelessness; Z82.49 Family history of ischemic heart disease and other diseases of the circulatory system; I25.2 Old myocardial infarction; Z95.5 Presence of coronary angioplasty implant and graft; Z87.891 Personal history of nicotine dependence; Z88.7 Allergy status to serum and vaccine; Z91.048 Other nonmedicinal substance allergy status
CPT/HCPCS: 36415; 93458; 99291; C9600; 71045; 80047; 80048; 80053; 80061; 81001; 83690; 84484; 85025; 85520; 85610; 85730; 87081; 93005; 93306; 94640; 96374; 96375; 99156; 99157; C1769; C1894; G0378; J0583; J1644; J2250; J2405; J3010; J3490; C1725; C1874; C1887; J7030; Q9967

== ENCOUNTER 2018-01-24 16:29 | Emergency (ER) | payer MEDICAID ==
[~2018-01-24] VITALS: Ht 175.3 cm; Wt 59.8 kg
[~2018-01-24 16:29] MED LIST changes: +ASPI-650 PO; +ATOR-2 PO; +CARV3.1212 PO; +CLOP75TA PO; +LISI5TAB7 PO; +NITR0.4T SL
[2018-01-24] MEDS ORDERED: FAMOTIDINE 20 MG TABLET ONE (17:28)
[2018-01-24] MEDS ORDERED: ACETAMINOPHEN 500 MG TABLET ONE (17:28)
[2018-01-24] MEDS ORDERED: FAMOTIDINE 20 MG TABLET PO ONE (17:30)
[2018-01-24] MEDS ORDERED: ACETAMINOPHEN 500 MG TABLET PO ONE (17:30)
[2018-01-24 17:39] LABS: BASOPHILS # (AUTO) 0.03 x10^3/uL (0-0.1); BASOPHILS % (AUTO) 1 % (0-1); EOSINOPHILS # (AUTO) 0.17 x10^3/uL (0-0.4); EOSINOPHILS % (AUTO) 4 % (1-7); LYMPHOCYTES # (AUTO) 1.01 x10^3/uL (1-3.4); LYMPHOCYTES % (AUTO) 23 % (22-44); MD NO; MEAN CORPUSCULAR HEMOGLOBIN 32.4 pg (27.5-34.5); MEAN CORPUSCULAR HGB CONC 33.4 g/dL (33.2-36.2); MEAN PLATELET VOLUME 7.7 fL (7.4-10.4); MONOCYTES # (AUTO) 0.39 x10^3/uL (0.2-0.8); MONOCYTES % (AUTO) 9 % (2-9); NEUTROPHILS % (AUTO) 65 % (42-75); PLATELET COUNT 303 x10^3/uL (130-400); RED BLOOD COUNT 4.26 x10^6/uL (4.38-5.82); RED CELL DISTRIBUTION WIDTH 15.9 % (9.4-14.8)
[2018-01-24 17:48] LABS: INTERNATIONAL NORMALIZED RATIO 0.99 (0.93-1.1); PROTHROMBIN TIME 10.3 Seconds (9.6-11.5)
[2018-01-24 17:50] LABS: ALANINE AMINOTRANSFERASE 20 U/L (12-78); ALBUMIN 4.1 g/dL (3.4-5.0); ANION GAP 9 mmol/L (5-15); CHLORIDE 111 mmol/L (98-107); CREATININE 1.03 mg/dL (0.7-1.3); SALICYLATE LEVEL 3.7 mg/dL (2.8-20.0)
[2018-01-24 17:52] LABS: ALKALINE PHOSPHATASE 67 U/L (45-117); BILIRUBIN,TOTAL 0.3 mg/dL (0.2-1.0); TOTAL PROTEIN 7.3 g/dL (6.4-8.2)
[2018-01-24 18:38] VITALS: BP 155/80
== END 2018-01-24 18:43 | disposition home or self-care (01) ==
LOC: ED 17:13
DX: K29.00 Acute gastritis without bleeding (principal); I10 Essential (primary) hypertension; E11.9 Type 2 diabetes mellitus without complications; I25.2 Old myocardial infarction
CPT/HCPCS: 36415; 80053; 80329; 85025; 85610; 85730; 93005; 99285; G0480

== ENCOUNTER 2018-02-06 06:57 | Emergency (ER) | payer MEDICAID ==
[~2018-02-06] VITALS: Ht 175.3 cm; Wt 61.5 kg
[2018-02-06 07:07] VITALS: BP 164/97
== END 2018-02-06 08:13 | disposition home or self-care (01) ==
LOC: ED 07:19
DX: G89.29 Other chronic pain (principal); M25.551 Pain in right hip; I25.2 Old myocardial infarction; I10 Essential (primary) hypertension; E11.9 Type 2 diabetes mellitus without complications
CPT/HCPCS: 99283

== ENCOUNTER 2018-02-14 08:00 | Emergency (ER) | payer MEDICAID ==
[~2018-02-14] VITALS: Ht 175.3 cm; Wt 60.0 kg
[2018-02-14 08:15] VITALS: BP 147/90
== END 2018-02-14 11:16 | disposition home or self-care (01) ==
LOC: ED 08:54
DX: R19.7 Diarrhea, unspecified (principal); J02.9 Acute pharyngitis, unspecified; I25.2 Old myocardial infarction; J45.909 Unspecified asthma, uncomplicated
CPT/HCPCS: 36415; 80047; 99283

== ENCOUNTER 2018-03-26 12:46 | Inpatient (IN) | payer MEDICAID ==
[~2018-03-26] VITALS: Ht 175.3 cm; Wt 62.4 kg
[~2018-03-26 12:46] MED LIST changes: -ASPI-621 PO; +ASPI81TA45 PO
[2018-03-26] MEDS ORDERED: SODIUM CHLORIDE FLUSH 10ML SYR IVF ONE (13:30)
[2018-03-26 13:43] LABS: BASOPHILS # (AUTO) 0.02 x10^3/uL (0-0.1); BASOPHILS % (AUTO) 0 % (0-1); EOSINOPHILS # (AUTO) 0.02 x10^3/uL (0-0.4); EOSINOPHILS % (AUTO) 0 % (1-7); LYMPHOCYTES % (AUTO) 6 % (22-44); MD NO; MEAN CORPUSCULAR HEMOGLOBIN 32.6 pg (27.5-34.5); MEAN CORPUSCULAR VOLUME 98.5 fL (81-97); MEAN PLATELET VOLUME 7.9 fL (7.4-10.4); MONOCYTES # (AUTO) 0.35 x10^3/uL (0.2-0.8); MONOCYTES % (AUTO) 7 % (2-9); NEUTROPHILS # (AUTO) 4.67 x10^3/uL (1.8-6.8); NEUTROPHILS % (AUTO) 87 % (42-75); PLATELET COUNT 218 x10^3/uL (130-400); RED CELL DISTRIBUTION WIDTH 15.4 % (9.4-14.8)
[2018-03-26 13:46] LABS: RAPID INFLUENZA A POSITIVE (Negative); RAPID INFLUENZA B Negative (Negative)
[2018-03-26 13:55] LABS: ALBUMIN 3.7 g/dL (3.4-5.0); ANION GAP 8 mmol/L (5-15); CHLORIDE 109 mmol/L (98-107)
[2018-03-26] MEDS ORDERED: OSELTAMIVIR 75 MG CAPSULE PO ONE (14:00)
[2018-03-26 14:01] LABS: ALANINE AMINOTRANSFERASE 24 U/L (12-78); ALKALINE PHOSPHATASE 57 U/L (45-117); BILIRUBIN,TOTAL 0.4 mg/dL (0.2-1.0); CREATININE 1.29 mg/dL (0.7-1.3); TOTAL PROTEIN 6.8 g/dL (6.4-8.2); TROPONIN I 0.017 ng/mL (0.000-0.045)
[2018-03-26] MEDS ORDERED: SODIUM CHLORIDE FLUSH 10ML SYR IVF PRN (14:30)
[2018-03-26 17:00] LABS: TROPONIN I 0.024 ng/mL (0.000-0.045)
[2018-03-26 17:16] VITALS: BP 135/78
[2018-03-26] MEDS ORDERED: ACETAMINOPHEN 325 MG TABLET ONE (20:38)
[2018-03-26] MEDS: ATORVASTATIN 40 MG TABLET PO SCH (20:40)
[2018-03-26] MEDS: OSELTAMIVIR 75 MG CAPSULE PO SCH (20:40)
[2018-03-26] MEDS: ACETAMINOPHEN 325 MG TABLET PO PRN (20:40)
[2018-03-26 20:50] LABS: TROPONIN I 0.023 ng/mL (0.000-0.045)
[2018-03-26 21:33] VITALS: BP 141/76
[2018-03-26 22:48] LABS: TROPONIN I 0.029 ng/mL (0.000-0.045)
[2018-03-27 02:41] VITALS: BP 132/74
[2018-03-27] MEDS: ASPIRIN 81 MG TABLET EC PO SCH (05:21)
[2018-03-27 07:13] VITALS: BP 132/78
[2018-03-27 08:10] VITALS: BP 166/111
[2018-03-27] MEDS: CLOPIDOGREL 75 MG TABLET PO SCH (08:14)
[2018-03-27] MEDS: OSELTAMIVIR 75 MG CAPSULE PO SCH ×2 (08:14→20:47)
[2018-03-27] MEDS ORDERED: SODIUM CHLORIDE 0.9% 1,000 ML IV SCH (11:00)
[2018-03-27 12:03] VITALS: BP 123/69
[2018-03-27] MEDS: ENOXAPARIN 40 MG/0.4 ML SQ SCH (17:32)
[2018-03-27] MEDS: CARVEDILOL 6.25 MG TABLET PO SCH (17:33)
[2018-03-27 19:14] VITALS: BP 111/68
[2018-03-27] MEDS: ACETAMINOPHEN 325 MG TABLET PO PRN (20:47)
[2018-03-27] MEDS: ATORVASTATIN 40 MG TABLET PO SCH (20:47)
[2018-03-28 01:14] VITALS: BP 123/74
[2018-03-28] MEDS: ASPIRIN 81 MG TABLET EC PO SCH (05:23)
[2018-03-28 05:27] VITALS: BP 122/77
[2018-03-28 05:37] LABS: ALBUMIN 2.9 g/dL (3.4-5.0); ANION GAP 9 mmol/L (5-15); CALCIUM 8.3 mg/dL (8.5-10.1); CHLORIDE 112 mmol/L (98-107)
[2018-03-28 05:38] LABS: CREATININE 0.68 mg/dL (0.7-1.3)
[2018-03-28 06:12] LABS: BASOPHILS # (AUTO) 0.02 x10^3/uL (0-0.1); BASOPHILS % (AUTO) 1 % (0-1); EOSINOPHILS # (AUTO) 0.04 x10^3/uL (0-0.4); EOSINOPHILS % (AUTO) 1 % (1-7); LYMPHOCYTES # (AUTO) 0.67 x10^3/uL (1-3.4); LYMPHOCYTES % (AUTO) 20 % (22-44); MD NO; MEAN CORPUSCULAR HEMOGLOBIN 32.9 pg (27.5-34.5); MEAN CORPUSCULAR HGB CONC 33.5 g/dL (33.2-36.2); MEAN CORPUSCULAR VOLUME 98.1 fL (81-97); MEAN PLATELET VOLUME 8.1 fL (7.4-10.4); MONOCYTES # (AUTO) 0.49 x10^3/uL (0.2-0.8); MONOCYTES % (AUTO) 14 % (2-9); NEUTROPHILS # (AUTO) 2.23 x10^3/uL (1.8-6.8); NEUTROPHILS % (AUTO) 65 % (42-75); PLATELET COUNT 201 x10^3/uL (130-400); RED CELL DISTRIBUTION WIDTH 15.6 % (9.4-14.8)
[2018-03-28 07:49] VITALS: BP 135/80
[2018-03-28] MEDS: CARVEDILOL 6.25 MG TABLET PO SCH ×2 (08:12→18:01)
[2018-03-28] MEDS: OSELTAMIVIR 75 MG CAPSULE PO SCH ×2 (08:12→20:29)
[2018-03-28] MEDS: LACTATED RINGERS 1,000 ML IV SCH ×2 (08:12→20:29)
[2018-03-28] MEDS: CLOPIDOGREL 75 MG TABLET PO SCH (08:13)
[2018-03-28] MEDS: ENOXAPARIN 40 MG/0.4 ML SQ SCH (08:15)
[2018-03-28 12:10] VITALS: BP 121/76
[2018-03-28 18:00] VITALS: BP 137/83
[2018-03-28 20:05] VITALS: BP 126/76
[2018-03-28] MEDS: ACETAMINOPHEN 325 MG TABLET PO PRN (20:29)
[2018-03-28] MEDS: ATORVASTATIN 40 MG TABLET PO SCH (20:29)
[2018-03-29 02:19] VITALS: BP 148/88
[2018-03-29 05:21] LABS: MEAN CORPUSCULAR HEMOGLOBIN 31.4 pg (27.5-34.5); MEAN CORPUSCULAR HGB CONC 32.4 g/dL (33.2-36.2); MEAN CORPUSCULAR VOLUME 97.1 fL (81-97); MEAN PLATELET VOLUME 7.4 fL (7.4-10.4); PLATELET COUNT 207 x10^3/uL (130-400); RED BLOOD COUNT 3.97 x10^6/uL (4.38-5.82); RED CELL DISTRIBUTION WIDTH 15.4 % (9.4-14.8)
[2018-03-29 05:33] LABS: ALBUMIN 2.8 g/dL (3.4-5.0); ANION GAP 9 mmol/L (5-15); CALCIUM 8.1 mg/dL (8.5-10.1); CHLORIDE 113 mmol/L (98-107)
[2018-03-29 05:47] LABS: BASOPHILS # (AUTO) 0.01 x10^3/uL (0-0.1); BASOPHILS % (AUTO) 0 % (0-1); EOSINOPHILS # (AUTO) 0.08 x10^3/uL (0-0.4); EOSINOPHILS % (AUTO) 3 % (1-7); LYMPHOCYTES # (AUTO) 0.79 x10^3/uL (1-3.4); LYMPHOCYTES % (AUTO) 29 % (22-44); MD SCAN; MONOCYTES # (AUTO) 0.31 x10^3/uL (0.2-0.8); MONOCYTES % (AUTO) 11 % (2-9); NEUTROPHILS # (AUTO) 1.54 x10^3/uL (1.8-6.8); NEUTROPHILS % (AUTO) 57 % (42-75)
[2018-03-29] MEDS: CARVEDILOL 6.25 MG TABLET PO SCH ×2 (06:00→17:24)
[2018-03-29] MEDS: ASPIRIN 81 MG TABLET EC PO SCH (06:00)
[2018-03-29] MEDS: LACTATED RINGERS 1,000 ML IV SCH ×2 (06:02→19:45)
[2018-03-29 08:06] VITALS: BP 141/95
[2018-03-29] MEDS: CLOPIDOGREL 75 MG TABLET PO SCH (08:41)
[2018-03-29] MEDS: OSELTAMIVIR 75 MG CAPSULE PO SCH ×2 (08:41→19:46)
[2018-03-29] MEDS: ENOXAPARIN 40 MG/0.4 ML SQ SCH (08:42)
[2018-03-29] MEDS: ACETAMINOPHEN 325 MG TABLET PO PRN ×2 (08:44→17:25)
[2018-03-29 13:15] VITALS: BP 145/87
[2018-03-29] MEDS: ATORVASTATIN 40 MG TABLET PO SCH (19:45)
[2018-03-29 19:57] VITALS: BP 136/78
[2018-03-30 02:15] VITALS: BP 145/81
[2018-03-30] MEDS: ACETAMINOPHEN 325 MG TABLET PO PRN ×2 (05:10→14:09)
[2018-03-30 05:37] LABS: BASOPHILS # (AUTO) 0.01 x10^3/uL (0-0.1); BASOPHILS % (AUTO) 0 % (0-1); EOSINOPHILS # (AUTO) 0.09 x10^3/uL (0-0.4); EOSINOPHILS % (AUTO) 3 % (1-7); LYMPHOCYTES # (AUTO) 0.84 x10^3/uL (1-3.4); LYMPHOCYTES % (AUTO) 27 % (22-44); MD NO; MEAN CORPUSCULAR HEMOGLOBIN 32.2 pg (27.5-34.5); MEAN CORPUSCULAR HGB CONC 33.4 g/dL (33.2-36.2); MEAN CORPUSCULAR VOLUME 96.4 fL (81-97); MEAN PLATELET VOLUME 7.5 fL (7.4-10.4); MONOCYTES # (AUTO) 0.32 x10^3/uL (0.2-0.8); MONOCYTES % (AUTO) 11 % (2-9); NEUTROPHILS % (AUTO) 59 % (42-75); PLATELET COUNT 234 x10^3/uL (130-400); RED BLOOD COUNT 4.02 x10^6/uL (4.38-5.82); RED CELL DISTRIBUTION WIDTH 15.5 % (9.4-14.8)
[2018-03-30 05:57] LABS: CHLORIDE 109 mmol/L (98-107)
[2018-03-30 05:59] VITALS: BP 155/90
[2018-03-30 06:01] LABS: ALBUMIN 3.1 g/dL (3.4-5.0); ANION GAP 10 mmol/L (5-15); CREATININE 0.59 mg/dL (0.7-1.3)
[2018-03-30] MEDS: CARVEDILOL 6.25 MG TABLET PO SCH (06:01)
[2018-03-30] MEDS: ASPIRIN 81 MG TABLET EC PO SCH (06:01)
[2018-03-30 08:27] VITALS: BP 164/87
[2018-03-30] MEDS: OSELTAMIVIR 75 MG CAPSULE PO SCH ×2 (08:56→14:09)
[2018-03-30] MEDS: CLOPIDOGREL 75 MG TABLET PO SCH (08:56)
[2018-03-30] MEDS: LACTATED RINGERS 1,000 ML IV SCH (08:56)
[2018-03-30] MEDS ORDERED: LISINOPRIL 10 MG TABLET PO SCH (09:00)
[2018-03-30] MEDS: ENOXAPARIN 40 MG/0.4 ML SQ SCH (11:31)
[2018-03-30 12:46] VITALS: BP 135/81
[2018-03-30] MEDS ORDERED: CLOP75TA PO (13:52)
[2018-03-30] MEDS ORDERED: ATOR40TA78 PO (13:52)
[2018-03-30] MEDS ORDERED: LISI-167 PO (13:52)
[2018-03-30] MEDS ORDERED: ASPI81TA45 PO (13:52)
[2018-03-30] MEDS ORDERED: CARV6.2512 PO (13:52)
== END 2018-03-30 16:32 | disposition home or self-care (01) | DRG 194 ==
LOC: ED 12:49 → EDIP 14:07 → 5SO 16:06
PROVIDERS: ADMIT Hospitalist; ATTEND Hospitalist
DX: J10.1 Influenza due to other identified influenza virus with other respiratory manifestations (principal); E87.2 Acidosis; I25.5 Ischemic cardiomyopathy; E78.5 Hyperlipidemia, unspecified; R07.9 Chest pain, unspecified; E11.9 Type 2 diabetes mellitus without complications; I11.0 Hypertensive heart disease with heart failure; I50.9 Heart failure, unspecified; Z59.0 Homelessness; Z87.11 Personal history of peptic ulcer disease; Z79.02 Long term (current) use of antithrombotics/antiplatelets; I25.2 Old myocardial infarction; Z88.7 Allergy status to serum and vaccine
CPT/HCPCS: 36415; 71045; 80053; 80069; 83690; 83880; 84484; 85025; 87400; 93005; 99285; G0378; J1650; J7030; J7120

== ENCOUNTER 2018-05-26 16:34 | Emergency (ER) | payer MEDICAID ==
[~2018-05-26] VITALS: Ht 175.3 cm; Wt 63.0 kg
[~2018-05-26 16:34] MED LIST changes: +ATOR40TA78 PO; +CARV6.2512 PO; +LISI-167 PO; +LOSA50TA14 PO; -LOSA50TA7 PO
[2018-05-26 16:36] VITALS: BP 178/99
[2018-05-26 17:11] LABS: BASOPHILS # (AUTO) 0.05 x10^3/uL (0-0.1); BASOPHILS % (AUTO) 1 % (0-1); EOSINOPHILS # (AUTO) 0.21 x10^3/uL (0-0.4); EOSINOPHILS % (AUTO) 4 % (1-7); LYMPHOCYTES # (AUTO) 1.26 x10^3/uL (1-3.4); LYMPHOCYTES % (AUTO) 23 % (22-44); MD NO; MEAN CORPUSCULAR HEMOGLOBIN 31.8 pg (27.5-34.5); MEAN CORPUSCULAR HGB CONC 32.5 g/dL (33.2-36.2); MEAN CORPUSCULAR VOLUME 97.6 fL (81-97); MEAN PLATELET VOLUME 7.6 fL (7.4-10.4); MONOCYTES # (AUTO) 0.54 x10^3/uL (0.2-0.8); MONOCYTES % (AUTO) 10 % (2-9); NEUTROPHILS # (AUTO) 3.37 x10^3/uL (1.8-6.8); NEUTROPHILS % (AUTO) 62 % (42-75); PLATELET COUNT 288 x10^3/uL (130-400); RED CELL DISTRIBUTION WIDTH 15.4 % (9.4-14.8)
[2018-05-26 17:16] LABS: ALBUMIN 4.3 g/dL (3.4-5.0); ANION GAP 8 mmol/L (5-15); CALCIUM 9.7 mg/dL (8.5-10.1); CHLORIDE 106 mmol/L (98-107); CREATININE 0.93 mg/dL (0.7-1.3)
[2018-05-26 17:19] LABS: TROPONIN I 0.023 ng/mL (0.000-0.045)
--- NOTE | 2018-05-26 18:21 | NUR ---
ASSUMED CARE OF PT FOR DISCHARGE. PT DISCHARGED WITH RX AND CARE CHEST REFERRAL. PT UP AMBULATORY AND STABLE ON FEET.
== END 2018-05-26 18:23 | disposition home or self-care (01) ==
LOC: ED 17:50
DX: R07.2 Precordial pain (principal); E11.9 Type 2 diabetes mellitus without complications; I10 Essential (primary) hypertension; J45.909 Unspecified asthma, uncomplicated; I25.2 Old myocardial infarction; M19.90 Unspecified osteoarthritis, unspecified site; Z72.9 Problem related to lifestyle, unspecified
CPT/HCPCS: 36415; 71045; 80048; 82040; 84484; 85025; 93005; 99284

== ENCOUNTER 2018-11-08 13:58 | Inpatient (IN) | payer MEDICAID ==
[~2018-11-08] VITALS: Ht 175.3 cm; Wt 63.0 kg
[~2018-11-08 13:58] MED LIST changes: -NITR0.4T SL; +NITR0.4T41 SL
[2018-11-08 14:46] LABS: ALANINE AMINOTRANSFERASE 15 U/L (12-78); ALBUMIN 3.2 g/dL (3.4-5.0); ANION GAP 5 mmol/L (5-15); CALCIUM 8.9 mg/dL (8.5-10.1); CHLORIDE 112 mmol/L (98-107)
[2018-11-08 14:47] LABS: BASOPHILS # (AUTO) 0.05 x10^3/uL (0-0.1); BASOPHILS % (AUTO) 1 % (0-1); EOSINOPHILS # (AUTO) 0.14 x10^3/uL (0-0.4); EOSINOPHILS % (AUTO) 2 % (1-7); LYMPHOCYTES # (AUTO) 0.99 x10^3/uL (1-3.4); LYMPHOCYTES % (AUTO) 15 % (22-44); MD NO; MEAN CORPUSCULAR HEMOGLOBIN 31.4 pg (27.5-34.5); MEAN CORPUSCULAR HGB CONC 31.7 g/dL (33.2-36.2); MEAN PLATELET VOLUME 7.3 fL (7.4-10.4); MONOCYTES # (AUTO) 0.26 x10^3/uL (0.2-0.8); MONOCYTES % (AUTO) 4 % (2-9); NEUTROPHILS # (AUTO) 5.22 x10^3/uL (1.8-6.8); NEUTROPHILS % (AUTO) 78 % (42-75); PLATELET COUNT 596 x10^3/uL (130-400); RED BLOOD COUNT 4.03 x10^6/uL (4.38-5.82); RED CELL DISTRIBUTION WIDTH 16.1 % (9.4-14.8)
[2018-11-08 14:50] LABS: ALKALINE PHOSPHATASE 53 U/L (45-117); BILIRUBIN,TOTAL 0.4 mg/dL (0.2-1.0); TOTAL PROTEIN 6.9 g/dL (6.4-8.2)
[2018-11-08 14:54] LABS: TROPONIN I 0.183 ng/mL (0.000-0.045)
[2018-11-08] MEDS ORDERED: ASPIRIN 325 MG TABLET PO STA (16:21)
[2018-11-08 16:45] LABS: MICROSCOPIC NOT IND
[2018-11-08 16:52] LABS: CULTURE INDICATED? NO
[2018-11-08] MEDS ORDERED: SODIUM CHLORIDE 0.9% 1,000 ML IV SCH (17:18)
[2018-11-08] MEDS ORDERED: ENOXAPARIN 40 MG/0.4 ML SQ SCH (17:30)
[2018-11-08] MEDS ORDERED: ASPIRIN 325 MG TABLET EC ONE (17:55)
[2018-11-08] MEDS ORDERED: ENOXAPARIN 60 MG/0.6 ML SQ ONE (18:00)
[2018-11-08 18:17] VITALS: BP 159/91
[2018-11-08] MEDS: CARVEDILOL 6.25 MG TABLET PO SCH (18:28)
[2018-11-08 18:47] LABS: HEMOGLOBIN A1C 5.8 % (4.2-6.3)
[2018-11-08 20:26] LABS: TROPONIN I 0.176 ng/mL (0.000-0.045)
[2018-11-08] MEDS: CEFTRIAXONE PMX 1GM/50ML 50 ML IV SCH (20:58)
[2018-11-08] MEDS: ATORVASTATIN 40 MG TABLET PO SCH (20:59)
[2018-11-08] MEDS: FAMOTIDINE 20 MG/2 ML IVPush SCH (20:59)
[2018-11-08] MEDS: ACETAMINOPHEN 325 MG TABLET PO PRN (22:25)
[2018-11-08] MEDS: AZITHROMYCIN 500 MG in SODIUM CHLORIDE 0.9% 250 ML IV SCH (22:26)
[2018-11-08] MEDS ORDERED: ALBUTEROL SULFATE 2.5 MG/3 ML ONE (23:33)
[2018-11-08] MEDS ORDERED: ALBU6.7H IH (23:36)
[2018-11-09] VITALS (7 sets, daily range): BP systolic 119–161; BP diastolic 79–92
[2018-11-09] MEDS ORDERED: SODIUM CHLORIDE 0.9% 1,000 ML IV SCH (00:30)
[2018-11-09 02:47] LABS: BASOPHILS # (AUTO) 0.04 x10^3/uL (0-0.1); BASOPHILS % (AUTO) 1 % (0-1); EOSINOPHILS % (AUTO) 3 % (1-7); LYMPHOCYTES # (AUTO) 1.09 x10^3/uL (1-3.4); LYMPHOCYTES % (AUTO) 15 % (22-44); MD NO; MEAN CORPUSCULAR HEMOGLOBIN 32.7 pg (27.5-34.5); MEAN CORPUSCULAR HGB CONC 32.6 g/dL (33.2-36.2); MEAN CORPUSCULAR VOLUME 100.2 fL (81-97); MEAN PLATELET VOLUME 7.5 fL (7.4-10.4); MONOCYTES # (AUTO) 0.29 x10^3/uL (0.2-0.8); MONOCYTES % (AUTO) 4 % (2-9); NEUTROPHILS % (AUTO) 78 % (42-75); PLATELET COUNT 543 x10^3/uL (130-400); RED BLOOD COUNT 3.85 x10^6/uL (4.38-5.82); RED CELL DISTRIBUTION WIDTH 15.7 % (9.4-14.8)
[2018-11-09 02:56] LABS: ALANINE AMINOTRANSFERASE 14 U/L (12-78); ANION GAP 9 mmol/L (5-15); CALCIUM 8.4 mg/dL (8.5-10.1); CHLORIDE 114 mmol/L (98-107); CHOLESTEROL, TOTAL 152 mg/dL (140-239); CREATININE 0.81 mg/dL (0.7-1.3); TRIGLYCERIDES 95 mg/dL (50-200); VLDL CHOLESTEROL 19 mg/dL (0-25)
[2018-11-09 02:58] LABS: ALKALINE PHOSPHATASE 46 U/L (45-117); BILIRUBIN,TOTAL 0.5 mg/dL (0.2-1.0); HDL CHOL % 34 % (26-37); HDL CHOLESTEROL (DIRECT) 51 mg/dL (40-60); LDL CHOLESTEROL,CALCULATED 82 mg/dL (54-169); LDL/HDL RATIO 1.6 (0.5-3.0); TOTAL PROTEIN 6.3 g/dL (6.4-8.2)
[2018-11-09 03:08] LABS: TROPONIN I 0.154 ng/mL (0.000-0.045)
[2018-11-09] MEDS: ALBUTEROL SULFATE 2.5 MG/3 ML NPPB PRN ×3 (05:05→23:19)
[2018-11-09] MEDS: ASPIRIN 81 MG TABLET EC PO SCH (05:54)
[2018-11-09] MEDS ORDERED: NITROGLYCERIN 0.4 MG BOTTLE (25 TABS) SL PRN (06:00)
[2018-11-09] MEDS ORDERED: NITROGLYCERIN 0.4 MG/SPRAY SL PRN (06:00)
[2018-11-09] MEDS ORDERED: MORPHINE SULFATE 4 MG/ML, 1ML IVPush ONE (06:00)
[2018-11-09] MEDS: CARVEDILOL 6.25 MG TABLET PO SCH ×3 (07:46→18:00)
[2018-11-09] MEDS: FAMOTIDINE 20 MG/2 ML IVPush SCH (07:54)
[2018-11-09] MEDS: LISINOPRIL 10 MG TABLET PO SCH (07:56)
[2018-11-09] MEDS: CLOPIDOGREL 75 MG TABLET PO SCH (07:56)
[2018-11-09 10:23] LABS: THYROID STIMULATING HORMONE 2.35 mIU/L (0.358-3.740)
[2018-11-09] MEDS: PANTOPRAZOLE 40 MG IV IVPush SCH ×2 (11:50→22:06)
[2018-11-09] MEDS: SUCRALFATE 1 GM/10 ML UDC PO SCH ×3 (11:50→20:28)
[2018-11-09] MEDS: ENOXAPARIN 40 MG/0.4 ML SQ SCH (11:50)
[2018-11-09] MEDS: ATORVASTATIN 40 MG TABLET PO SCH (20:28)
[2018-11-09] MEDS: CEFTRIAXONE PMX 1GM/50ML 50 ML IV SCH (20:28)
[2018-11-09] MEDS: AZITHROMYCIN 500 MG in SODIUM CHLORIDE 0.9% 250 ML IV SCH (22:06)
[2018-11-09] MEDS: ACETAMINOPHEN 325 MG TABLET PO PRN (22:08)
[2018-11-10 01:15] VITALS: BP 126/82
[2018-11-10] MEDS: ONDANSETRON ODT 4 MG PO PRN (03:12)
[2018-11-10 04:59] LABS: TROPONIN I 0.108 ng/mL (0.000-0.045)
[2018-11-10] MEDS ORDERED: MAALOX/HYOSCYAMINE/LIDOCAINE 45 ML BTL PO ONE (05:00)
[2018-11-10] MEDS ORDERED: MORPHINE SULFATE 4 MG/ML, 1ML IVPush ONE (05:00)
[2018-11-10] MEDS: ASPIRIN 81 MG TABLET EC PO SCH (05:05)
[2018-11-10 07:43] VITALS: BP 152/87
[2018-11-10] MEDS ORDERED: BISACODYL 10 MG SUPP PR PRN (08:30)
[2018-11-10] MEDS: POLYETHYLENE GLYCOL 17 GM PACKET PO SCH (09:26)
[2018-11-10] MEDS: SUCRALFATE 1 GM/10 ML UDC PO SCH ×4 (09:26→21:25)
[2018-11-10] MEDS: CLOPIDOGREL 75 MG TABLET PO SCH (09:26)
[2018-11-10] MEDS: CARVEDILOL 6.25 MG TABLET PO SCH ×2 (09:26→17:18)
[2018-11-10] MEDS: PANTOPRAZOLE 40 MG IV IVPush SCH ×2 (09:27→21:25)
[2018-11-10] MEDS: LISINOPRIL 10 MG TABLET PO SCH (09:27)
[2018-11-10 09:37] LABS: BASOPHILS # (AUTO) 0.03 x10^3/uL (0-0.1); BASOPHILS % (AUTO) 1 % (0-1); EOSINOPHILS # (AUTO) 0.08 x10^3/uL (0-0.4); EOSINOPHILS % (AUTO) 1 % (1-7); LYMPHOCYTES # (AUTO) 0.88 x10^3/uL (1-3.4); LYMPHOCYTES % (AUTO) 16 % (22-44); MD NO; MEAN CORPUSCULAR HEMOGLOBIN 31.5 pg (27.5-34.5); MEAN CORPUSCULAR HGB CONC 32.2 g/dL (33.2-36.2); MEAN CORPUSCULAR VOLUME 97.9 fL (81-97); MEAN PLATELET VOLUME 7.6 fL (7.4-10.4); MONOCYTES # (AUTO) 0.26 x10^3/uL (0.2-0.8); MONOCYTES % (AUTO) 5 % (2-9); NEUTROPHILS # (AUTO) 4.36 x10^3/uL (1.8-6.8); NEUTROPHILS % (AUTO) 78 % (42-75); PLATELET COUNT 516 x10^3/uL (130-400); RED CELL DISTRIBUTION WIDTH 16.1 % (9.4-14.8)
[2018-11-10 09:38] LABS: ANION GAP 8 mmol/L (5-15); CALCIUM 8.7 mg/dL (8.5-10.1); CHLORIDE 115 mmol/L (98-107)
[2018-11-10 09:41] LABS: ALANINE AMINOTRANSFERASE 13 U/L (12-78); ALKALINE PHOSPHATASE 47 U/L (45-117); BILIRUBIN,TOTAL 0.4 mg/dL (0.2-1.0); CREATININE 0.81 mg/dL (0.7-1.3); TOTAL PROTEIN 6.1 g/dL (6.4-8.2)
[2018-11-10] MEDS ORDERED: OMNIPAQUE 350 MG/ML, 100ML BOTTLE ONE (10:58)
[2018-11-10] MEDS: ENOXAPARIN 40 MG/0.4 ML SQ SCH (11:47)
[2018-11-10 13:08] VITALS: BP 127/76
[2018-11-10 14:58] LABS: OCCULT BLOOD NEGATIVE (NEGATIVE)
[2018-11-10 17:15] VITALS: BP 127/78
[2018-11-10 18:43] VITALS: BP 128/82
[2018-11-10] MEDS: ATORVASTATIN 40 MG TABLET PO SCH (21:25)
[2018-11-10] MEDS: ALBUTEROL SULFATE 2.5 MG/3 ML NPPB PRN (23:46)
[2018-11-10] MEDS: ACETAMINOPHEN 325 MG TABLET PO PRN (23:52)
[2018-11-11 01:15] VITALS: BP 130/82
[2018-11-11] MEDS ORDERED: MAALOX/HYOSCYAMINE/LIDOCAINE 45 ML BTL PO ONE (03:00)
[2018-11-11] MEDS ORDERED: MORPHINE SULFATE 4 MG/ML, 1ML IVPush ONE (05:00)
[2018-11-11] MEDS ORDERED: MORPHINE SULFATE 4 MG/ML, 1ML ONE (05:02)
[2018-11-11] MEDS: ASPIRIN 81 MG TABLET EC PO SCH (05:11)
[2018-11-11] MEDS: CARVEDILOL 6.25 MG TABLET PO SCH ×2 (06:00→18:12)
[2018-11-11] MEDS: ALBUTEROL SULFATE 2.5 MG/3 ML NPPB PRN (07:41)
[2018-11-11 08:12] VITALS: BP 147/81
[2018-11-11] MEDS: LISINOPRIL 10 MG TABLET PO SCH (08:36)
[2018-11-11] MEDS: SUCRALFATE 1 GM/10 ML UDC PO SCH ×4 (08:36→21:18)
[2018-11-11] MEDS: CLOPIDOGREL 75 MG TABLET PO SCH (08:36)
[2018-11-11] MEDS: POLYETHYLENE GLYCOL 17 GM PACKET PO SCH (08:38)
[2018-11-11] MEDS: PANTOPRAZOLE 40 MG IV IVPush SCH ×2 (10:09→21:18)
[2018-11-11] MEDS: ENOXAPARIN 40 MG/0.4 ML SQ SCH (11:30)
[2018-11-11 14:00] VITALS: BP 115/72
[2018-11-11] MEDS: ONDANSETRON ODT 4 MG PO PRN (16:23)
[2018-11-11] MEDS: ATORVASTATIN 40 MG TABLET PO SCH (21:17)
[2018-11-11] MEDS: ACETAMINOPHEN 325 MG TABLET PO PRN (21:17)
[2018-11-11 21:25] VITALS: BP 117/88
[2018-11-12 02:24] VITALS: BP 122/75
[2018-11-12] MEDS ORDERED: MAALOX/HYOSCYAMINE/LIDOCAINE 45 ML BTL PO ONE (05:30)
[2018-11-12] MEDS: ASPIRIN 81 MG TABLET EC PO SCH (06:03)
[2018-11-12] MEDS: CARVEDILOL 6.25 MG TABLET PO SCH (06:04)
[2018-11-12] MEDS: SUCRALFATE 1 GM/10 ML UDC PO SCH ×2 (07:53→11:00)
[2018-11-12] MEDS: POLYETHYLENE GLYCOL 17 GM PACKET PO SCH (07:53)
[2018-11-12] MEDS ORDERED: POLY17PO5 PO (08:42)
[2018-11-12] MEDS: LISINOPRIL 10 MG TABLET PO SCH (09:00)
[2018-11-12] MEDS: PANTOPRAZOLE 40 MG IV IVPush SCH (09:34)
[2018-11-12] MEDS: CLOPIDOGREL 75 MG TABLET PO SCH (09:34)
== END 2018-11-12 11:35 | disposition home or self-care (01) | DRG 311 ==
LOC: ED 16:26 → EDIP 16:27 → ED 16:35 → 5SO 18:05 → DCLOUNGE 11-12 11:30
PROVIDERS: ADMIT Internal Medicine; ATTEND Internal Medicine
DX: I24.8 Other forms of acute ischemic heart disease (principal); R45.851 Suicidal ideations; I31.3 Pericardial effusion (noninflammatory); M87.9 Osteonecrosis, unspecified; K59.00 Constipation, unspecified; E11.9 Type 2 diabetes mellitus without complications; I11.0 Hypertensive heart disease with heart failure; I50.9 Heart failure, unspecified; K27.9 Peptic ulcer, site unspecified, unspecified as acute or chronic, without hemorrhage or perforation; I25.5 Ischemic cardiomyopathy; I25.10 Atherosclerotic heart disease of native coronary artery without angina pectoris; M16.11 Unilateral primary osteoarthritis, right hip; F12.90 Cannabis use, unspecified, uncomplicated; I35.8 Other nonrheumatic aortic valve disorders; Z95.5 Presence of coronary angioplasty implant and graft; Z76.5 Malingerer [conscious simulation]; I25.2 Old myocardial infarction; Z91.19 Patient's noncompliance with other medical treatment and regimen; Z83.3 Family history of diabetes mellitus; Z82.49 Family history of ischemic heart disease and other diseases of the circulatory system; Z79.84 Long term (current) use of oral hypoglycemic drugs; Z87.11 Personal history of peptic ulcer disease; Z59.0 Homelessness; Z88.7 Allergy status to serum and vaccine; Z88.8 Allergy status to other drugs, medicaments and biological substances
CPT/HCPCS: 36415; 74022; 84145; 99285; J3490; J7613; 74177; 80053; 80061; 81003; 82272; 82607; 83036; 83690; 84443; 84484; 85025; 87040; 93005; 93306; 94640; G0378; J0456; J0696; J1650; Q0162; Q9967; C9113; J2270; J7030; J7050

== ENCOUNTER 2018-12-09 06:50 | Observation (INO) | payer MEDICAID ==
[~2018-12-09] VITALS: Ht 175.3 cm; Wt 54.5 kg
[2018-12-09 16:52] VITALS: BP 155/85
== END 2018-12-09 18:56 | disposition left against medical advice (07) ==
LOC: ED 09:12 → INTOOBSV 14:08 → EDIP 14:08 → 5SO 16:13
PROVIDERS: ADMIT Internal Medicine; ATTEND Internal Medicine
DX: R10.13 Epigastric pain (principal); R07.89 Other chest pain; I25.10 Atherosclerotic heart disease of native coronary artery without angina pectoris; I11.0 Hypertensive heart disease with heart failure; I50.32 Chronic diastolic (congestive) heart failure; I25.5 Ischemic cardiomyopathy; E11.9 Type 2 diabetes mellitus without complications; Z87.11 Personal history of peptic ulcer disease; Z59.0 Homelessness; Z91.14 Patient's other noncompliance with medication regimen; Z87.891 Personal history of nicotine dependence; Z79.82 Long term (current) use of aspirin; Z79.02 Long term (current) use of antithrombotics/antiplatelets; Z79.899 Other long term (current) drug therapy; Z88.7 Allergy status to serum and vaccine; Z91.048 Other nonmedicinal substance allergy status
CPT/HCPCS: 36415; 71045; 80053; 83690; 84484; 85025; 85520; 85610; 85730; 93005; 93458; 96365; 96366; 96375; 99156; 99291; C1769; C1894; G0378; J1644; J2250; J3010; Q9967; J0583

== ENCOUNTER 2018-12-12 09:01 | Emergency (ER) | payer MEDICAID ==
[~2018-12-12] VITALS: Ht 175.3 cm; Wt 57.5 kg
[2018-12-12 12:24] VITALS: BP 134/67
== END 2018-12-12 12:27 | disposition home or self-care (01) ==
LOC: ED 10:02
DX: S46.912A Strain of unspecified muscle, fascia and tendon at shoulder and upper arm level, left arm, initial encounter (principal); I25.2 Old myocardial infarction; M19.90 Unspecified osteoarthritis, unspecified site; I10 Essential (primary) hypertension; E11.9 Type 2 diabetes mellitus without complications; Z59.0 Homelessness; Z87.891 Personal history of nicotine dependence; Z79.899 Other long term (current) drug therapy; X58.XXXA Exposure to other specified factors, initial encounter; Y93.89 Activity, other specified; Y92.89 Other specified places as the place of occurrence of the external cause; Y99.8 Other external cause status
CPT/HCPCS: 36415; 71045; 80053; 84484; 84550; 85025; 85610; 85730; 93005; 99284

== ENCOUNTER 2019-06-07 08:34 | Emergency (ER) | payer MEDICAID ==
[~2019-06-07] VITALS: Ht 175.3 cm; Wt 60.0 kg
[~2019-06-07 08:34] MED LIST changes: +ALBU6.7H8 IH; +OMEP40CA42 PO; -OMEP40CA6 PO; +POLY17PO5 PO
--- NOTE | 2019-06-07 08:39 | NUR ---
pt brought in by JOSE MIGUEL. Reported [place] with complaints of abd pain, N/V. pt now c/o "having another heart attack" pt verbalized that he does not have any insurance, ID or money and wanted to have his heart attack in [facility]. pt chagned into hopsital gown and connected to monitors.
--- NOTE | 2019-06-07 08:53 | NUR ---
REPORT RECEIVED FROM ASMITA PARKER. CARE ASSUMED. PT ON ROOM AIR, NAD, FULL MONITOR, EKG COMPLETED, LABS DRAWN, AND PIV ESTABLISHED.
--- NOTE | 2019-06-07 08:58 | NUR ---
PA AT BEDSIDE.
[2019-06-07 09:33] LABS: BASOPHILS # (AUTO) 0.03 x10^3/uL (0-0.1); BASOPHILS % (AUTO) 0 % (0-1); EOSINOPHILS # (AUTO) 0.16 x10^3/uL (0-0.4); EOSINOPHILS % (AUTO) 2 % (1-7); LYMPHOCYTES # (AUTO) 0.95 x10^3/uL (1-3.4); LYMPHOCYTES % (AUTO) 10 % (22-44); MD NO; MEAN CORPUSCULAR HEMOGLOBIN 31.4 pg (27.5-34.5); MEAN CORPUSCULAR HGB CONC 32.4 g/dL (33.2-36.2); MEAN CORPUSCULAR VOLUME 96.8 fL (81-97); MEAN PLATELET VOLUME 8.7 fL (7.4-10.4); MONOCYTES # (AUTO) 0.43 x10^3/uL (0.2-0.8); MONOCYTES % (AUTO) 5 % (2-9); NEUTROPHILS # (AUTO) 7.52 x10^3/uL (1.8-6.8); NEUTROPHILS % (AUTO) 83 % (42-75); PLATELET COUNT 277 x10^3/uL (130-400); RED BLOOD COUNT 4.76 x10^6/uL (4.38-5.82)
[2019-06-07 09:41] LABS: ALBUMIN 4.1 g/dL (3.4-5.0); ANION GAP 10 mmol/L (5-15); CALCIUM 9.1 mg/dL (8.5-10.1); CHLORIDE 103 mmol/L (98-107)
[2019-06-07 09:47] LABS: ALANINE AMINOTRANSFERASE 13 U/L (12-78); ALKALINE PHOSPHATASE 70 U/L (45-117); BILIRUBIN,TOTAL 0.6 mg/dL (0.2-1.0); CREATININE 1.34 mg/dL (0.7-1.3); TROPONIN I 0.061 ng/mL (0.000-0.045)
--- NOTE | 2019-06-07 10:25 | NUR ---
UA SENT TO LAB BY THIS RN.
--- NOTE | 2019-06-07 10:33 | NUR ---
PA AT BEDSIDE FOR RECTAL EXAM.
[2019-06-07 10:56] LABS: MICROSCOPIC INDICATED
[2019-06-07 11:02] LABS: CULTURE INDICATED? YES
--- NOTE | 2019-06-07 11:25 | NUR ---
ALL RESULTS BACK AT THIS TIME, CHART UP FOR RECHECK.
[2019-06-07] MEDS ORDERED: SODIUM CHLORIDE 0.9% 1,000ML IVBOLUS ONE (11:30)
--- NOTE | 2019-06-07 11:40 | NUR ---
MD AT BEDSIDE, IV FLUIDS INFUSING PER ORDER AND PLAN FOR FOLLOW UP TROP AT 1300.
[2019-06-07 12:47] VITALS: BP 156/66
--- NOTE | 2019-06-07 12:47 | NUR ---
LAB AT BEDSIDE FOR REPEAT TROP.
[2019-06-07 13:06] LABS: TROPONIN I 0.061 ng/mL (0.000-0.045)
--- NOTE | 2019-06-07 13:09 | NUR ---
ALL RESULTS BACK AT THIS TIME, CHART UP FOR RECHECK.
--- NOTE | 2019-06-07 13:34 | NUR ---
Patient/Caregiver given discharge instructions and they have confirmed that they understand the instructions. Patient ambulatory with steady gait.
== END 2019-06-07 13:36 | disposition home or self-care (01) ==
LOC: ED 11:49
DX: N30.00 Acute cystitis without hematuria (principal); J44.9 Chronic obstructive pulmonary disease, unspecified; I25.2 Old myocardial infarction; I25.10 Atherosclerotic heart disease of native coronary artery without angina pectoris; E11.9 Type 2 diabetes mellitus without complications; R11.2 Nausea with vomiting, unspecified
CPT/HCPCS: 36415; 80053; 81001; 83690; 84484; 85025; 87086; 93005; 96360; 99284; J7030

== ENCOUNTER 2019-06-15 17:15 | Emergency (ER) | payer MEDICAID ==
[~2019-06-15] VITALS: Ht 175.3 cm; Wt 59.0 kg
--- NOTE | 2019-06-15 18:10 | NUR ---
EKG ON ARRIVAL, PT PLACED ON ALL ROOM MONITORING. PT STATES PAIN MINIMAL AT THIS TIME, RATED 4/10 TO EPIGASTRIC REGION. CALL LIGHT WITHIN REACH, WARM BLANKET PROVIDED.
[2019-06-15 19:31] LABS: BASOPHILS # (AUTO) 0.03 x10^3/uL (0-0.1); BASOPHILS % (AUTO) 1 % (0-1); EOSINOPHILS # (AUTO) 0.12 x10^3/uL (0-0.4); EOSINOPHILS % (AUTO) 2 % (1-7); LYMPHOCYTES # (AUTO) 1.06 x10^3/uL (1-3.4); LYMPHOCYTES % (AUTO) 21 % (22-44); MD NO; MEAN CORPUSCULAR HEMOGLOBIN 31.1 pg (27.5-34.5); MEAN CORPUSCULAR HGB CONC 32.5 g/dL (33.2-36.2); MEAN CORPUSCULAR VOLUME 95.6 fL (81-97); MEAN PLATELET VOLUME 7.9 fL (7.4-10.4); MONOCYTES # (AUTO) 0.42 x10^3/uL (0.2-0.8); MONOCYTES % (AUTO) 8 % (2-9); NEUTROPHILS # (AUTO) 3.47 x10^3/uL (1.8-6.8); NEUTROPHILS % (AUTO) 68 % (42-75); PLATELET COUNT 315 x10^3/uL (130-400); RED BLOOD COUNT 4.23 x10^6/uL (4.38-5.82); RED CELL DISTRIBUTION WIDTH 15.6 % (9.4-14.8)
[2019-06-15 19:41] LABS: ALBUMIN 3.5 g/dL (3.4-5.0); ANION GAP 4 mmol/L (5-15); CHLORIDE 108 mmol/L (98-107); CREATININE 1.42 mg/dL (0.7-1.3)
[2019-06-15 19:46] LABS: TROPONIN I 0.041 ng/mL (0.000-0.045)
[2019-06-15 20:28] VITALS: BP 114/60
== END 2019-06-15 20:32 | disposition home or self-care (01) ==
LOC: ED 20:25
DX: R07.89 Other chest pain (principal); R06.02 Shortness of breath; M25.512 Pain in left shoulder; I25.2 Old myocardial infarction; I10 Essential (primary) hypertension; E11.9 Type 2 diabetes mellitus without complications; J44.9 Chronic obstructive pulmonary disease, unspecified; Z95.0 Presence of cardiac pacemaker; Z59.0 Homelessness; Z72.9 Problem related to lifestyle, unspecified
CPT/HCPCS: 36415; 71045; 80048; 82040; 84484; 85025; 93005; 99285

== ENCOUNTER 2019-07-09 08:59 | Emergency (ER) | payer MEDICAID ==
[~2019-07-09] VITALS: Ht 175.3 cm; Wt 72.0 kg
--- NOTE | 2019-07-09 09:23 | NUR ---
THIS IS A 64 YEAR OLD MALE WHO C/O OF SOB, CP, COUGH, FATIGUE, CHILLS, DIZZINESS WORSENING SINCE LAST NIGHT. INCREASED BILATERAL LEG SWELLING
[2019-07-09] MEDS ORDERED: ALBUTEROL/IPRATROPIUM 2.5MG/0.5MG, 3 ML NEB ONE (10:00)
[2019-07-09 10:28] LABS: BASOPHILS # (AUTO) 0.03 x10^3/uL (0-0.1); BASOPHILS % (AUTO) 0 % (0-1); EOSINOPHILS # (AUTO) 0.27 x10^3/uL (0-0.4); EOSINOPHILS % (AUTO) 3 % (1-7); LYMPHOCYTES # (AUTO) 0.95 x10^3/uL (1-3.4); LYMPHOCYTES % (AUTO) 11 % (22-44); MD NO; MEAN CORPUSCULAR HEMOGLOBIN 30.2 pg (27.5-34.5); MEAN CORPUSCULAR HGB CONC 32.1 g/dL (33.2-36.2); MEAN CORPUSCULAR VOLUME 94.1 fL (81-97); MEAN PLATELET VOLUME 7.2 fL (7.4-10.4); MONOCYTES # (AUTO) 0.34 x10^3/uL (0.2-0.8); MONOCYTES % (AUTO) 4 % (2-9); NEUTROPHILS # (AUTO) 6.74 x10^3/uL (1.8-6.8); NEUTROPHILS % (AUTO) 81 % (42-75); PLATELET COUNT 667 x10^3/uL (130-400); RED BLOOD COUNT 4.12 x10^6/uL (4.38-5.82); RED CELL DISTRIBUTION WIDTH 17.2 % (9.4-14.8)
[2019-07-09 10:38] LABS: ALANINE AMINOTRANSFERASE 14 U/L (12-78); ALBUMIN 2.6 g/dL (3.4-5.0); ANION GAP 6 mmol/L (5-15); CALCIUM 8.4 mg/dL (8.5-10.1); CHLORIDE 111 mmol/L (98-107); CREATININE 0.84 mg/dL (0.7-1.3)
[2019-07-09 10:44] LABS: ALKALINE PHOSPHATASE 57 U/L (45-117); BILIRUBIN,TOTAL 0.2 mg/dL (0.2-1.0); TOTAL PROTEIN 6.9 g/dL (6.4-8.2); TROPONIN I 0.026 ng/mL (0.000-0.045)
[2019-07-09] MEDS ORDERED: CEFTRIAXONE PMX 1GM/50ML 50 ML IV ONE (11:30)
--- NOTE | 2019-07-09 11:31 | NUR ---
DISCUSSED WITH MD, NO NEED TO HAVE BLOOD CULTURES DRAWN PRIOR TO ANTIBX HUNG.
[2019-07-09] MEDS ORDERED: CEFTRIAXONE PMX 1GM/50ML 50 ML ONE (11:32)
--- NOTE | 2019-07-09 11:54 | NUR ---
Break RN note: Pt provided meal tray and assisted with setup. Pt resting in bed, NADN, denies other needs.
--- NOTE | 2019-07-09 12:34 | NUR ---
Patient/Caregiver given discharge instructions and they have confirmed that they understand the instructions. Patient ambulatory with steady gait.
[2019-07-09 12:39] VITALS: BP 130/50
== END 2019-07-09 12:41 | disposition home or self-care (01) ==
LOC: ED 11:51
DX: J15.9 Unspecified bacterial pneumonia (principal); R06.02 Shortness of breath; R94.31 Abnormal electrocardiogram [ECG] [EKG]
CPT/HCPCS: 36415; 71045; 80053; 83605; 83880; 84145; 84484; 85025; 93005; 96365; 99285; J0696

== ENCOUNTER 2019-07-10 06:08 | Inpatient (IN) | payer MEDICAID ==
[~2019-07-10] VITALS: Ht 175.3 cm; Wt 57.2 kg
[2019-07-10] MEDS ORDERED: SODIUM CHLORIDE FLUSH 10ML SYR IVF ONE (06:30)
[2019-07-10] MEDS ORDERED: AZITHROMYCIN 500 MG in SODIUM CHLORIDE 0.9% 250 ML IVPB ONE (06:30)
[2019-07-10] MEDS ORDERED: CEFTRIAXONE PMX 1GM/50ML 50 ML IVPB ONE (06:30)
--- NOTE | 2019-07-10 06:45 | NUR ---
PT TO ED WITH C/O COUGH AND SOB X3 DAYS, PT WAS IN ED YESTERDAY AND DIAGNOSED WITH PNEUMONIA. PT UNABLE TO FILL PERSCRIPTION. PT REPORTS BEING HOMELESS. DENIES ANY OTHER C/O AT THIS TIME. PT PLACED ON MONITORING, CALL LIGHT WITHIN REACH, ALL SAFETY MEASURES IN PLACE.
[2019-07-10] MEDS ORDERED: CEFTRIAXONE PMX 1GM/50ML 50 ML ONE (06:46)
--- NOTE | 2019-07-10 06:49 | NUR ---
X2 SETS OF BLOOD CULTURES DRAWN BEFORE ABX ADMIN.
[2019-07-10 06:50] LABS: BASOPHILS # (AUTO) 0.02 x10^3/uL (0-0.1); BASOPHILS % (AUTO) 0 % (0-1); EOSINOPHILS # (AUTO) 0.36 x10^3/uL (0-0.4); EOSINOPHILS % (AUTO) 5 % (1-7); LYMPHOCYTES % (AUTO) 11 % (22-44); MD NO; MEAN CORPUSCULAR HEMOGLOBIN 30.9 pg (27.5-34.5); MEAN CORPUSCULAR HGB CONC 32.6 g/dL (33.2-36.2); MEAN CORPUSCULAR VOLUME 94.7 fL (81-97); MEAN PLATELET VOLUME 7.3 fL (7.4-10.4); MONOCYTES # (AUTO) 0.42 x10^3/uL (0.2-0.8); MONOCYTES % (AUTO) 5 % (2-9); NEUTROPHILS # (AUTO) 6.45 x10^3/uL (1.8-6.8); NEUTROPHILS % (AUTO) 79 % (42-75); PLATELET COUNT 704 x10^3/uL (130-400); RED BLOOD COUNT 4.14 x10^6/uL (4.38-5.82); RED CELL DISTRIBUTION WIDTH 17.3 % (9.4-14.8)
[2019-07-10 07:01] LABS: ANION GAP 8 mmol/L (5-15); CHLORIDE 109 mmol/L (98-107); CREATININE 0.79 mg/dL (0.7-1.3)
[2019-07-10 07:05] LABS: TROPONIN I 0.033 ng/mL (0.000-0.045)
--- NOTE | 2019-07-10 07:11 | NUR ---
REPORT TO CLAUDINE Brooke RN
--- NOTE | 2019-07-10 07:51 | NUR ---
ATTEMPTED TO CALL REPORT, RECEIVING RN CURRENTLY IN AN ISOLATION ROOM FOR PT CARE. WILL RETURN CALL.
--- NOTE | 2019-07-10 08:23 | NUR ---
REPORT TO SHAVONNE MARVIN RN. PT RESTING IN BED, PROVIDED WITH URINAL. DENIES ANY FURTHER NEEDS OR CONCERNS. CALL LIGHT IN REACH.
[2019-07-10] MEDS ORDERED: ONDANSETRON ODT 4 MG PO PRN (09:30)
[2019-07-10] MEDS ORDERED: DOCUSATE 100 MG CAPSULE PO PRN (09:30)
[2019-07-10] MEDS ORDERED: POLYETHYLENE GLYCOL 17 GM PACKET PO PRN (09:30)
[2019-07-10] MEDS ORDERED: ONDANSETRON 2MG/ML, 2ML IVPush PRN (09:30)
[2019-07-10] MEDS ORDERED: ALBUTEROL SULFATE 2.5 MG/3 ML ONE (09:33)
[2019-07-10] MEDS: ALBUTEROL SULFATE 2.5 MG/3 ML NPPB SCH ×3 (09:41→20:00)
[2019-07-10] MEDS: LISINOPRIL 10 MG TABLET PO SCH (10:08)
[2019-07-10] MEDS: ENOXAPARIN 40 MG/0.4 ML SQ SCH (10:08)
[2019-07-10 13:08] VITALS: BP 163/91
[2019-07-10] MEDS: CARVEDILOL 6.25 MG TABLET PO SCH (17:39)
[2019-07-10] MEDS: ACETAMINOPHEN 325 MG TABLET PO PRN ×2 (17:39→23:50)
[2019-07-10 19:12] VITALS: BP 111/68
[2019-07-10] MEDS: ATORVASTATIN 40 MG TABLET PO SCH (20:23)
[2019-07-11 00:26] VITALS: BP 136/83
[2019-07-11] MEDS: ALBUTEROL SULFATE 2.5 MG/3 ML NPPB SCH ×5 (02:24→20:45)
[2019-07-11 04:56] LABS: BASOPHILS # (AUTO) 0.04 x10^3/uL (0-0.1); BASOPHILS % (AUTO) 1 % (0-1); EOSINOPHILS # (AUTO) 0.31 x10^3/uL (0-0.4); EOSINOPHILS % (AUTO) 5 % (1-7); LYMPHOCYTES # (AUTO) 0.92 x10^3/uL (1-3.4); LYMPHOCYTES % (AUTO) 15 % (22-44); MD NO; MEAN CORPUSCULAR HEMOGLOBIN 30.3 pg (27.5-34.5); MEAN CORPUSCULAR HGB CONC 31.9 g/dL (33.2-36.2); MEAN CORPUSCULAR VOLUME 94.8 fL (81-97); MONOCYTES # (AUTO) 0.45 x10^3/uL (0.2-0.8); MONOCYTES % (AUTO) 7 % (2-9); NEUTROPHILS # (AUTO) 4.45 x10^3/uL (1.8-6.8); NEUTROPHILS % (AUTO) 72 % (42-75); PLATELET COUNT 595 x10^3/uL (130-400); RED BLOOD COUNT 3.64 x10^6/uL (4.38-5.82); RED CELL DISTRIBUTION WIDTH 16.9 % (9.4-14.8)
[2019-07-11 05:05] LABS: ANION GAP 7 mmol/L (5-15); CALCIUM 7.8 mg/dL (8.5-10.1); CHLORIDE 115 mmol/L (98-107); CREATININE 0.76 mg/dL (0.7-1.3)
[2019-07-11 05:06] VITALS: BP 137/86
[2019-07-11] MEDS: ASPIRIN 81 MG TABLET EC PO SCH (05:22)
[2019-07-11] MEDS: CARVEDILOL 6.25 MG TABLET PO SCH ×2 (05:22→17:56)
[2019-07-11] MEDS ORDERED: CEFTRIAXONE PMX 1GM/50ML 50 ML IV SCH (07:00)
[2019-07-11 07:26] VITALS: BP 138/81
[2019-07-11] MEDS: AZITHROMYCIN 500 MG TABLET PO SCH (08:50)
[2019-07-11] MEDS: ENOXAPARIN 40 MG/0.4 ML SQ SCH (08:50)
[2019-07-11] MEDS: LISINOPRIL 10 MG TABLET PO SCH (08:50)
[2019-07-11] MEDS: GUAIFENESIN ER 600 MG TABLET PO SCH ×2 (11:08→20:28)
[2019-07-11 12:43] VITALS: BP 131/79
[2019-07-11 19:17] VITALS: BP 115/68
[2019-07-11] MEDS: ATORVASTATIN 40 MG TABLET PO SCH (20:28)
[2019-07-11] MEDS: ACETAMINOPHEN 325 MG TABLET PO PRN (20:28)
[2019-07-12 01:23] VITALS: BP 130/75
[2019-07-12] MEDS: ACETAMINOPHEN 325 MG TABLET PO PRN (05:05)
[2019-07-12] MEDS: CARVEDILOL 6.25 MG TABLET PO SCH ×2 (05:05→16:51)
[2019-07-12 05:35] LABS: BASOPHILS # (AUTO) 0.02 x10^3/uL (0-0.1); BASOPHILS % (AUTO) 0 % (0-1); EOSINOPHILS # (AUTO) 0.03 x10^3/uL (0-0.4); EOSINOPHILS % (AUTO) 1 % (1-7); LYMPHOCYTES # (AUTO) 0.79 x10^3/uL (1-3.4); LYMPHOCYTES % (AUTO) 12 % (22-44); MD NO; MEAN CORPUSCULAR HEMOGLOBIN 30.8 pg (27.5-34.5); MEAN CORPUSCULAR HGB CONC 32.8 g/dL (33.2-36.2); MEAN CORPUSCULAR VOLUME 93.8 fL (81-97); MEAN PLATELET VOLUME 7.6 fL (7.4-10.4); MONOCYTES # (AUTO) 0.36 x10^3/uL (0.2-0.8); MONOCYTES % (AUTO) 5 % (2-9); NEUTROPHILS # (AUTO) 5.53 x10^3/uL (1.8-6.8); NEUTROPHILS % (AUTO) 82 % (42-75); PLATELET COUNT 579 x10^3/uL (130-400); RED BLOOD COUNT 3.54 x10^6/uL (4.38-5.82); RED CELL DISTRIBUTION WIDTH 16.9 % (9.4-14.8)
[2019-07-12 05:43] LABS: CHLORIDE 110 mmol/L (98-107)
[2019-07-12 05:48] LABS: ANION GAP 7 mmol/L (5-15); CALCIUM 8.5 mg/dL (8.5-10.1); CREATININE 0.68 mg/dL (0.7-1.3)
[2019-07-12] MEDS: ASPIRIN 81 MG TABLET EC PO SCH (05:53)
[2019-07-12] MEDS: ALBUTEROL SULFATE 2.5 MG/3 ML NPPB SCH ×4 (07:13→20:02)
[2019-07-12 07:22] VITALS: BP 141/91
[2019-07-12] MEDS: GUAIFENESIN ER 600 MG TABLET PO SCH ×2 (08:24→20:28)
[2019-07-12] MEDS: AZITHROMYCIN 500 MG TABLET PO SCH (08:24)
[2019-07-12] MEDS: LISINOPRIL 10 MG TABLET PO SCH (09:00)
[2019-07-12] MEDS: ENOXAPARIN 40 MG/0.4 ML SQ SCH (09:30)
[2019-07-12 13:42] VITALS: BP 136/81
[2019-07-12] MEDS: ATORVASTATIN 40 MG TABLET PO SCH (20:24)
[2019-07-12 20:31] VITALS: BP 147/81
[2019-07-13 01:58] VITALS: BP 157/97
[2019-07-13] MEDS: CARVEDILOL 6.25 MG TABLET PO SCH (05:36)
[2019-07-13] MEDS: ASPIRIN 81 MG TABLET EC PO SCH (05:48)
[2019-07-13 07:08] VITALS: BP 177/99
[2019-07-13] MEDS: ALBUTEROL SULFATE 2.5 MG/3 ML NPPB SCH ×2 (07:26→10:15)
[2019-07-13] MEDS: GUAIFENESIN ER 600 MG TABLET PO SCH (08:17)
[2019-07-13] MEDS: ACETAMINOPHEN 325 MG TABLET PO PRN (08:17)
[2019-07-13] MEDS: AZITHROMYCIN 500 MG TABLET PO SCH (08:18)
[2019-07-13] MEDS: LISINOPRIL 10 MG TABLET PO SCH (08:18)
[2019-07-13] MEDS: ENOXAPARIN 40 MG/0.4 ML SQ SCH (08:18)
[2019-07-13] MEDS ORDERED: LISI-167 PO (10:17)
[2019-07-13] MEDS ORDERED: ALBU6.7H8 IH (10:17)
[2019-07-13] MEDS ORDERED: ATOR40TA78 PO (10:17)
[2019-07-13] MEDS ORDERED: CARV6.2512 PO (10:17)
[2019-07-13] MEDS ORDERED: ASPI81TA45 PO (10:17)
== END 2019-07-13 11:22 | disposition home or self-care (01) | DRG 139 ==
LOC: ED 07:10 → EDIP 07:47 → 3N 08:43
PROVIDERS: ADMIT Internal Medicine; ATTEND Family Medicine
DX: J15.9 Unspecified bacterial pneumonia (principal); J84.9 Interstitial pulmonary disease, unspecified; D64.9 Anemia, unspecified; E11.9 Type 2 diabetes mellitus without complications; F10.21 Alcohol dependence, in remission; G89.29 Other chronic pain; R62.7 Adult failure to thrive; I10 Essential (primary) hypertension; I25.10 Atherosclerotic heart disease of native coronary artery without angina pectoris; Z68.1 Body mass index [BMI] 19.9 or less, adult; Z59.0 Homelessness; Z91.19 Patient's noncompliance with other medical treatment and regimen; Z95.5 Presence of coronary angioplasty implant and graft; Z88.7 Allergy status to serum and vaccine
CPT/HCPCS: 36415; 71045; 80048; 82040; 83605; 84145; 84484; 85025; 87040; 87070; 87081; 87205; 87486; 87581; 87633; 87798; 93005; 94640; 99285; G0378; J0696; J1650; J7613; J7512

== ENCOUNTER 2019-07-17 09:37 | Emergency (ER) | payer MEDICAID ==
[~2019-07-17] VITALS: Ht 175.3 cm; Wt 65.8 kg
[2019-07-17 09:39] VITALS: BP 172/99
[2019-07-17] MEDS ORDERED: KETOROLAC 30 MG/1 ML ONE (10:15)
--- NOTE | 2019-07-17 10:23 | NUR ---
PT MED NOTED FOR CHRONIC HIP PAIN. RX FOR ASA GIVEN. PT VERBALIZES "THEY AIN'T GOING TO FILL THAT" CARE CHEST INFORMATION OFFERED, PT REFUSED, VERBALIZES "THEY HATE ME OVER THERE".
[2019-07-17] MEDS ORDERED: KETOROLAC 30 MG/1 ML IM ONE (10:30)
== END 2019-07-17 10:47 | disposition home or self-care (01) ==
LOC: ED 09:55
DX: G89.29 Other chronic pain (principal); M25.551 Pain in right hip; J44.9 Chronic obstructive pulmonary disease, unspecified; I25.2 Old myocardial infarction; E11.9 Type 2 diabetes mellitus without complications; I10 Essential (primary) hypertension; Z59.0 Homelessness
CPT/HCPCS: 96372; 99283; J1885

== ENCOUNTER 2019-07-21 13:15 | Emergency (ER) | payer MEDICAID ==
[~2019-07-21] VITALS: Ht 175.3 cm; Wt 60.0 kg
--- NOTE | 2019-07-21 13:28 | NUR ---
piero. report received from ems. pt c/o cp/sob/n/v for a few days. pt had pna a week ago and covid-19 test was negative at this time. hx of mi and multiple stents. pt's aox4. resps even and unlabored. nsr rate 60's on social worker masters at this time. all monitors in place. clal light within reach. ekg done at bedside by emt. pa at bedside to evaluate.
[2019-07-21] MEDS ORDERED: ONDANSETRON ODT 4 MG PO ONE (14:00)
[2019-07-21] MEDS ORDERED: ONDANSETRON ODT 4 MG ONE (14:02)
[2019-07-21 14:17] LABS: ALBUMIN 3.7 g/dL (3.4-5.0); ANION GAP 7 mmol/L (5-15); CALCIUM 9.8 mg/dL (8.5-10.1); CHLORIDE 107 mmol/L (98-107); CREATININE 0.83 mg/dL (0.7-1.3)
[2019-07-21 14:28] LABS: BASOPHILS # (AUTO) 0.05 x10^3/uL (0-0.1); BASOPHILS % (AUTO) 1 % (0-1); EOSINOPHILS # (AUTO) 0.12 x10^3/uL (0-0.4); EOSINOPHILS % (AUTO) 2 % (1-7); LYMPHOCYTES # (AUTO) 0.72 x10^3/uL (1-3.4); LYMPHOCYTES % (AUTO) 13 % (22-44); MD NO; MEAN CORPUSCULAR HEMOGLOBIN 31.1 pg (27.5-34.5); MEAN CORPUSCULAR HGB CONC 32.7 g/dL (33.2-36.2); MEAN CORPUSCULAR VOLUME 95.3 fL (81-97); MEAN PLATELET VOLUME 8.4 fL (7.4-10.4); MONOCYTES # (AUTO) 0.31 x10^3/uL (0.2-0.8); MONOCYTES % (AUTO) 6 % (2-9); NEUTROPHILS # (AUTO) 4.39 x10^3/uL (1.8-6.8); NEUTROPHILS % (AUTO) 79 % (42-75); PLATELET COUNT 365 x10^3/uL (130-400); RED BLOOD COUNT 4.08 x10^6/uL (4.38-5.82); RED CELL DISTRIBUTION WIDTH 17.8 % (9.4-14.8)
[2019-07-21] MEDS ORDERED: MAALOX/HYOSCYAMINE/LIDOCAINE 45 ML BTL PO ONE (14:30)
[2019-07-21] MEDS ORDERED: MAALOX/HYOSCYAMINE/LIDOCAINE 45 ML BTL ONE (14:37)
[2019-07-21 14:40] VITALS: BP 130/76
--- NOTE | 2019-07-21 14:40 | NUR ---
pt medicated per emar. pt tolerated well. pt's aox4. resps even and unlabored.
[2019-07-21] MEDS ORDERED: IBUPROFEN 200 MG TABLET ONE (14:49)
--- NOTE | 2019-07-21 14:53 | NUR ---
pt medicated per emar. pt tolerated well. pt's aox4. resps even and unlabored. all monitors in place. call light within reach.
[2019-07-21] MEDS ORDERED: IBUPROFEN 200 MG TABLET PO ONE (15:00)
--- NOTE | 2019-07-21 15:06 | NUR ---
Patient given discharge instructions and they have confirmed that they understand the instructions.
== END 2019-07-21 15:07 | disposition home or self-care (01) ==
LOC: ED 13:50
DX: R07.2 Precordial pain (principal)
CPT/HCPCS: 36415; 71045; 80048; 82040; 84484; 85025; 93005; 99285; Q0162

== ENCOUNTER 2019-07-24 14:48 | Emergency (ER) | payer MEDICAID ==
[~2019-07-24] VITALS: Ht 175.3 cm; Wt 60.0 kg
--- NOTE | 2019-07-24 16:16 | NUR ---
BREAK RN: PT TO ROOM VIA W/C
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
--- NOTE | 2019-07-24 16:29 | NUR ---
Report to Conor TIAN
[2019-07-24 17:08] LABS: BASOPHILS # (AUTO) 0.02 x10^3/uL (0-0.1); BASOPHILS % (AUTO) 0 % (0-1); EOSINOPHILS # (AUTO) 0.24 x10^3/uL (0-0.4); EOSINOPHILS % (AUTO) 5 % (1-7); LYMPHOCYTES % (AUTO) 24 % (22-44); MD NO; MEAN CORPUSCULAR HEMOGLOBIN 30.6 pg (27.5-34.5); MEAN CORPUSCULAR HGB CONC 32.2 g/dL (33.2-36.2); MEAN CORPUSCULAR VOLUME 94.9 fL (81-97); MEAN PLATELET VOLUME 8.3 fL (7.4-10.4); MONOCYTES % (AUTO) 9 % (2-9); NEUTROPHILS # (AUTO) 2.81 x10^3/uL (1.8-6.8); NEUTROPHILS % (AUTO) 62 % (42-75); PLATELET COUNT 318 x10^3/uL (130-400); RED BLOOD COUNT 3.89 x10^6/uL (4.38-5.82); RED CELL DISTRIBUTION WIDTH 18.6 % (9.4-14.8)
[2019-07-24 17:12] LABS: ALANINE AMINOTRANSFERASE 17 U/L (12-78); ALBUMIN 3.8 g/dL (3.4-5.0); ANION GAP 4 mmol/L (5-15); CALCIUM 9.3 mg/dL (8.5-10.1); CHLORIDE 113 mmol/L (98-107)
[2019-07-24 17:17] LABS: ALKALINE PHOSPHATASE 56 U/L (45-117); BILIRUBIN,TOTAL 0.2 mg/dL (0.2-1.0); CREATININE 0.86 mg/dL (0.7-1.3); TOTAL PROTEIN 7.6 g/dL (6.4-8.2); TROPONIN I 0.027 ng/mL (0.000-0.045)
[2019-07-24 17:40] VITALS: BP 132/78
--- NOTE | 2019-07-24 17:41 | NUR ---
GOT PATIENT A WALKER FOR DISCHARGE PATIENT REQUESTED, MD ORDERED. PATIENT STATES FEELING IMPROVED.
--- NOTE | 2019-07-24 17:44 | NUR ---
TASK RN: DELIA REQUESTED FROM [facility].
== END 2019-07-24 18:51 | disposition home or self-care (01) ==
LOC: ED 15:20
DX: R06.00 Dyspnea, unspecified (principal); Z20.828 Contact with and (suspected) exposure to other viral communicable diseases; R07.89 Other chest pain; I25.2 Old myocardial infarction; I10 Essential (primary) hypertension; E11.9 Type 2 diabetes mellitus without complications; J44.9 Chronic obstructive pulmonary disease, unspecified; M19.90 Unspecified osteoarthritis, unspecified site
CPT/HCPCS: 36415; 71045; 80053; 84145; 84484; 85025; 93005; 99285

== ENCOUNTER 2019-07-29 19:30 | Emergency (ER) | payer MEDICAID ==
[~2019-07-29] VITALS: Ht 175.3 cm; Wt 60.0 kg
[2019-07-29 19:33] VITALS: BP 136/80
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
--- NOTE | 2019-07-29 19:51 | NUR ---
PT TO RAD.
--- NOTE | 2019-07-29 20:05 | NUR ---
PT BACK FROM RAD.
[2019-07-29] MEDS ORDERED: HYDROcodone/APAP 5/325 TABLET ONE (20:25)
[2019-07-29] MEDS ORDERED: HYDROcodone/APAP 5/325 TABLET PO ONE (20:30)
--- NOTE | 2019-07-29 20:46 | NUR ---
Patient given discharge instructions and they have confirmed that they understand the instructions. Patient ambulatory with steady gait.
--- NOTE | 2019-07-29 20:47 | NUR ---
PT UPSET THAT HE CAN NOT STAY IN THE HOSPITAL. PT STATES HE CAN NOT BARE WEIGHT. PT AMBULATED W/ WALKER W/ A STEADY GAIT TO DC DESK. GIVEN TAXI VOUCHER.
== END 2019-07-29 20:49 | disposition home or self-care (01) ==
LOC: ED 20:45
DX: S70.01XA Contusion of right hip, initial encounter (principal); E11.9 Type 2 diabetes mellitus without complications; J44.9 Chronic obstructive pulmonary disease, unspecified; I25.2 Old myocardial infarction; I11.9 Hypertensive heart disease without heart failure; M19.90 Unspecified osteoarthritis, unspecified site; Z98.61 Coronary angioplasty status; Y08.89XA Assault by other specified means, initial encounter; Y93.89 Activity, other specified; Y92.410 Unspecified street and highway as the place of occurrence of the external cause; Y99.8 Other external cause status
CPT/HCPCS: 99283

== ENCOUNTER 2019-09-25 01:46 | Day surgery (SDC) | payer MEDICAID ==
[~2019-09-25] VITALS: Ht 170.2 cm; Wt 79.0 kg
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
--- NOTE | 2019-09-25 01:52 | NUR ---
pt refusing to let us remove rings from his fingers. pt states he would rather we cut off his fingers then remove the rings.
--- NOTE | 2019-09-25 01:54 | NUR ---
rt at bedside
--- NOTE | 2019-09-25 01:55 | NUR ---
preparing for intubation with dr maldonado
--- NOTE | 2019-09-25 01:56 | NUR ---
THIS TECH DID EKG
--- NOTE | 2019-09-25 02:09 | NUR ---
20 etomidate pushed now
--- NOTE | 2019-09-25 02:09 | NUR ---
100 succs pushed now
--- NOTE | 2019-09-25 02:12 | NUR ---
pt intubated with 26 at the lip and positive CO2 read
[2019-09-25] MEDS ORDERED: PROPOFOL 100 ML IV ONE (02:15)
--- NOTE | 2019-09-25 02:15 | NUR ---
CARE TRANSFERRED TO ASMITA BEST
[2019-09-25 02:18] LABS: BASOPHILS # (AUTO) 0.06 x10^3/uL (0-0.1); BASOPHILS % (AUTO) 1 % (0-1); EOSINOPHILS # (AUTO) 0.56 x10^3/uL (0-0.4); EOSINOPHILS % (AUTO) 6 % (1-7); LYMPHOCYTES # (AUTO) 1.21 x10^3/uL (1-3.4); LYMPHOCYTES % (AUTO) 13 % (22-44); MD NO; MEAN CORPUSCULAR HEMOGLOBIN 30.1 pg (27.5-34.5); MEAN CORPUSCULAR HGB CONC 31.7 g/dL (33.2-36.2); MEAN PLATELET VOLUME 8.3 fL (7.4-10.4); MONOCYTES # (AUTO) 0.45 x10^3/uL (0.2-0.8); MONOCYTES % (AUTO) 5 % (2-9); NEUTROPHILS # (AUTO) 7.25 x10^3/uL (1.8-6.8); NEUTROPHILS % (AUTO) 76 % (42-75); PLATELET COUNT 362 x10^3/uL (130-400); RED BLOOD COUNT 3.71 x10^6/uL (4.38-5.82)
--- NOTE | 2019-09-25 02:20 | NUR ---
SENIOR SAFETY MANAGEMENT CONSULTANT RETURNED FROM LUNCH AND HELPED WITH PT CARE THEN ASSUMED PT CARE SOON AFTER
[2019-09-25 02:28] LABS: ALANINE AMINOTRANSFERASE 17 U/L (12-78); ALBUMIN 3.4 g/dL (3.4-5.0); ANION GAP 7 mmol/L (5-15); CALCIUM 8.4 mg/dL (8.5-10.1); CHLORIDE 114 mmol/L (98-107); CREATININE 0.95 mg/dL (0.7-1.3)
[2019-09-25] MEDS ORDERED: PROPOFOL 100 ML IV PRN (02:30)
[2019-09-25 02:32] LABS: ALKALINE PHOSPHATASE 66 U/L (45-117); BILIRUBIN,TOTAL 0.3 mg/dL (0.2-1.0); TOTAL PROTEIN 6.7 g/dL (6.4-8.2)
--- NOTE | 2019-09-25 02:52 | NUR ---
code cardiac called
[2019-09-25] MEDS ORDERED: ATROPINE SYRINGE 0.1 MG/ML, 10ML IVPush ONE (03:00)
[2019-09-25] MEDS ORDERED: MIDAZOLAM 1 MG/ML, 5ML IVPush ONE (03:00)
[2019-09-25] MEDS ORDERED: MIDAZOLAM HCL 50 MG in SODIUM CHLORIDE 0.9% 40 ML IV PRN (03:11)
[2019-09-25] MEDS ORDERED: MIDAZOLAM 1 MG/ML, 5ML ONE ×2 (03:28→16:54)
[2019-09-25] MEDS ORDERED: BIVALIRUDIN 250 MG ONE (03:28)
[2019-09-25] MEDS ORDERED: LIDOCAINE 1%, 20ML ONE (03:28)
[2019-09-25] MEDS ORDERED: FENTANYL PF 250 MCG/5ML ONE (03:28)
[2019-09-25] MEDS ORDERED: EPINEPHRINE 1 MG/ML, 1ML IVPush ONE (03:30)
[2019-09-25] MEDS ORDERED: ASPIRIN 300 MG SUPP PR ONE (03:30)
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
[2019-09-25 03:38] LABS: MICROSCOPIC AUTO
--- NOTE | 2019-09-25 03:45 | NUR ---
pt transfered to cathlab rn with report and pt transfered to landscape and yardwork laborer table, pt had a pulse of 72 confirmed with radial pulse check and monitor by documentation writer at transfer. cath team requested pt be removed from our monitor and thanked us.
--- NOTE | 2019-09-25 04:00 | NUR ---
paving and surfacing labourer called harshil segovia typewriter mechanic went up to paving and surfacing labourer with ED provider. Cath team at pt contact said they had a pulse and that they did not need our help at the time, and we can go.
[2019-09-25 04:16] VITALS: BP 87/54
--- NOTE | 2019-09-25 04:20 | NUR ---
SEE ATTACHED VITAL SHEET TO PT CHART
[2019-09-25] MEDS ORDERED: SODIUM BICARB 8.4%, 50ML SYRINGE ONE ×3 (04:34→16:55)
[2019-09-25] MEDS ORDERED: EPINEPHRINE 5 MG in SODIUM CHLORIDE 0.9% 245 ML IV PRN (05:00)
[2019-09-25] MEDS ORDERED: EPINEPHRINE SYRINGE 0.1 MG/ML, 10ML IVPush ONE (05:00)
[2019-09-25] MEDS ORDERED: CODE BLUE RESPONSE XX ONE (05:00)
--- NOTE | 2019-09-25 05:02 | NUR ---
LATE NOTE: THIS TECH WAS IN PT ROOM ASSISTING RN AND DRS WITH CLEANING, INTUBATION, PREPARATION, AND TRANSPORT TO RV MECHANIC
[2019-09-25] MEDS ORDERED: SUCCINYLCHOLINE 20 MG/ML, 10ML ONE (16:54)
[2019-09-25] MEDS ORDERED: ETOMIDATE 20 MG/10 ML ONE (16:54)
[2019-09-25] MEDS ORDERED: EPINEPHRINE SYRINGE 0.1 MG/ML, 10ML ONE ×2 (16:55→16:57)
== END 2019-09-25 04:14 | disposition expired ==
LOC: CACL 03:25 → ED 03:25 → EDIP 03:28 → UNDOADMIN 03:28 → CACL 04:14 → EDSTATUS 09:36
PROVIDERS: ATTEND Student in an Organized Health Care Education/Training Program
DX: R57.0 Cardiogenic shock (principal); Z11.59 Encounter for screening for other viral diseases; I21.19 ST elevation (STEMI) myocardial infarction involving other coronary artery of inferior wall; J96.90 Respiratory failure, unspecified, unspecified whether with hypoxia or hypercapnia; I50.23 Acute on chronic systolic (congestive) heart failure; Z79.82 Long term (current) use of aspirin; Z79.899 Other long term (current) drug therapy; Z88.7 Allergy status to serum and vaccine; Z98.890 Other specified postprocedural states; Z82.49 Family history of ischemic heart disease and other diseases of the circulatory system; Z83.3 Family history of diabetes mellitus
CPT/HCPCS: 33210; 36415; 71045; 80053; 80307; 81001; 83605; 83880; 84145; 84484; 85025; 87040; 87070; 87205; 92920; 92950; 93005; 93454; 94002; C1725; C1769; C1887; C1894; J0171; J0330; J0461; J2250; J2704; J3010; Q9967; U0001; J0583